=== PATIENT | female | born 1950 | race Caucasian/White ===

== ENCOUNTER 2018-05-07 18:57 | Outpatient (REF) | payer MEDICARE, SELFPAY ==
--- NOTE | 2018-05-07 15:30 | PAPFT_PTH ---
PATIENT: Linh rCystal LOC: [facility] U#:[id number] AGE/SX: 67/F ROOM: RE05/07/[address]: Gay Graham : 1950 BED: DIS: 05/07/2018 SPEC #: [id number] RECD: 05/10/18 12:54 STATUS: CHRIS REBeni #: [id number] ADRIAN: 05/07/18 15:[address]: Gay Graham DEPT: [facility] Cytology RECD BY: Ngoc Bee Tissues: 1 - CX/ENDOCX FOR PAP SMEARS Procedures: PAP THIN PREP/UVM Screening HPV DNA PROBE Comments: [id number]
[2018-05-07 20:25] LABS: TSH 0.96 uIU/mL (0.358-3.74)
== END 2018-05-07 19:17 ==
LOC: NCHCN 18:57
PROVIDERS: PCP Family Medicine; Visit Provider Family Medicine
DX: E03.9 Hypothyroidism, unspecified (principal); Z12.4 Encounter for screening for malignant neoplasm of cervix; Z11.51 Encounter for screening for human papillomavirus (HPV)
CPT/HCPCS: 88142; 84443; 87624

== ENCOUNTER 2019-03-31 10:27 | Emergency (ER) | payer MEDICARE, SELFPAY ==
[2019-03-31 10:41] VITALS: BP 136/65; PULSE 110; RESP 20; TEMP 36.8; O2SAT 92
--- NOTE | 2019-03-31 10:59 | ED.GENADUL_ITS ---
Discharge Plan Disposition Patient Disposition: HOME Discharge Details Chief Complaint: RespSymp Clinical Impression: Sinusitis, Acute otitis media, left Primary Care Provider: Gay Graham ED Provider: Severiano Perez Home Meds and New Rx's Prescriptions: New amoxicillin-pot clavulanate [Augmentin] 875-125 mg tablet 1 tab PO BID 10 Days Qty: 20 RF: 0 No Action atorvastatin [Lipitor] 40 MG tablet 40 mg PO DAILY RF: 0 aspirin 325 MG tablet 325 mg PO DAILY RF: 0 omeprazole 40 MG capsule,delayed release(DR/EC) 40 mg PO DAILY RF: 0 levothyroxine [Synthroid] 100 MCG tablet 100 mcg PO DAILY RF: 0 hydroxychloroquine [Plaquenil] 200 MG tablet 200 mg PO DAILY RF: 0 nicotine 7 MG/24 HR patch 24 hour 1 ea Transdermal DAILY RF: 0 Discharge Instructions Instructions: Sinusitis (ED), Otitis Media (ED) Additional Instructions: Your chest x-ray was negative for pneumonia and your flu was also negative. Most likely acute sinusitis for which we have prescribed antibiotics. It is very important that you take your antibiotics to completion. Take the antibiotic with a probiotic for which you can ask the pharmacist about. Follow- up with your primary care provider should your symptoms persist. Referrals: Mariposa Copeland [Emergency Nurse] - 1 week (Inaccurate entry) Severiano Perez PA [Emergency Provider] - Gay Graham MD [Primary Care Provider] - 1 week Discharge Data Discharge Date/Time-TO BE ENTERED AT DEPARTURE: 03/31/19 11:40 Medical Decision Making 11:36 This is a nontoxic-appearing 68-year-old female who presents to the emergency department with URI symptoms. Physical exam significant for left otitis media and maxillary/frontal sinus. Chest x-ray negative for pneumonia and flu is negative. Vital signs otherwise stable here in the emergency department. Symptoms of present for over 1 week therefore will initiate antibiotic treatment with Augmentin. Discussed the utilization of a probiotic. Return precautions provided. She does have an inhaler at home for which she should take for cough/wheezing symptoms. She will follow-up with her primary care provider should her symptoms persist. HPI General Date/Time Provider Initiated Documentation: 03/31/19 10:48 . HPI Narrative: Patient is a 68-year-old female significant history for pack-a-day smoking history who presents to the emergency department with roughly 1 week of URI symptoms. She admits to severe sinus tenderness, cough with yellow-green sputum production, left ear pain and sore throat. She denies any objective fevers but has had chills and sweats. No joint pain or muscle aches. No chest pain. No neck pain or stiffness. Related Data Home Medications Medication Instructions Recorded Confirmed aspirin 325 mg PO DAILY 05/16/15 03/31/19 atorvastatin [Lipitor] 40 mg PO DAILY 05/16/15 03/31/19 hydroxychloroquine [Plaquenil] 200 mg PO DAILY 05/16/15 03/31/19 levothyroxine [Synthroid] 100 mcg PO DAILY 05/16/15 03/31/19 nicotine 1 ea TRANSDERMAL DAILY 05/16/15 03/31/19 omeprazole 40 mg PO DAILY 05/16/15 03/31/19 amoxicillin-pot clavulanate 1 tab PO BID 10 Days #20 tab 03/31/19 [Augmentin] Previous Rx's Medication Instructions Recorded amoxicillin-pot clavulanate 1 tab PO BID 10 Days #20 tab 03/31/19 [Augmentin] Allergies Allergy/AdvReac Type Severity Reaction Status Date / Time codeine Allergy Mild Unverified 03/31/19 10:46 General Stated Complaint: RespSymp GLORIA: 3 Review of Systems Constitutional Constitutional: Denies body ache(s), Reports chills, Reports fatigue, Reports fever(s), Denies malaise, Denies night sweats and Reports weakness Eyes Eyes: Denies eye discharge ENT Ears, Nose, Mouth, and Throat: Reports otalgia, Reports nasal discharge, Denies neck mass, Denies neck pain, Denies nose pain, Reports sinus pain, Reports sinus pressure, Reports sore throat and Denies throat swelling Cardiovascular Cardiovascular: Denies chest pain, Denies dyspnea and Denies orthopnea Respiratory Respiratory: Reports cough, Reports excessive phlegm production, Denies dyspnea and Denies wheezing Gastrointestinal Gastrointestinal: Denies nausea and Denies vomiting Musculoskeletal Musculoskeletal: Denies joint swelling and Denies neck pain Neurologic Neurologic: Reports weakness Endocrine Endocrine: Reports fatigue Allergic/Immunologic Allergic/Immunologic: Denies throat swelling and Denies wheezing [facility] Social History Smoking/Tobacco Use Status: Current every day Tobacco Type: cigarettes Alcohol Intake: never Drug use: Never Substance use type: does not use Do you feel safe in your relationship?: Yes Exam Const General: cooperative, healthy appearing, comfortable and no acute distress Orientation: alert, awake and oriented x3 HENMT Head: normal to inspection, no palpable skull fracture and normocephalic Ears: hearing grossly normal bilaterally, external ears normal, TM normal on the right and TM abnormal bulging on the left, erythematous on the left and with loss of landmarks General nose exam: external nose normal Face and sinus: face symmetric and sinus tenderness frontal and maxillary Mouth: oral mucosae normal Teeth and gingiva: dentition normal Throat: posterior oropharynx normal Eyes General: appearance normal, both eyes and all related structures Conjunctivae: conjunctivae normal Cornea: corneas normal Pupils: PERRL Neck Neck: normal visual inspection, full ROM and lymphadenopathy Chest Chest: normal inspection of the chest Resp Effort & Inspection: normal respiratory effort Auscultation: bronchial breath sounds Cardio Rate: regular rate Rhythm: regular rhythm Pulses: normal peripheral pulses Skin General skin exam: no rashes or lesions noted Course Vital Signs Vital signs: Vital Signs Temperature 36.8 C 03/31/19 10:41 Pulse 110 H 03/31/19 10:41 Respiratory Rate 20 03/31/19 10:41 Blood Pressure 136/65 03/31/19 10:41 Pulse Oximetry 92 L 03/31/19 10:41 Temperature 36.8 C 03/31/19 10:41 Temperature Source Skin 03/31/19 10:41 Pulse 110 H 03/31/19 10:41 Respiratory Rate 20 03/31/19 10:41 Respiratory Effort 03/31/19 10:52 Respiratory Depth Normal 03/31/19 10:52 Blood Pressure 136/65 03/31/19 10:41 Blood Pressure Position Sitting 03/31/19 10:41 Pulse Oximetry 92 L 03/31/19 10:41 Oxygen Delivery Method Room Air 03/31/19 10:41 Oxygen Flow Rate 0 03/31/19 10:41 Pain Level 5 03/31/19 10:41 Lab/Test Results Lab/Test Results: 03/31/19 10:57 Nasopharynx Influenza Types A,B Antigen - Pending
--- NOTE | 2019-03-31 11:14 | DI.RAD_ITS ---
EXAM: XR CHEST 2V PA LATERAL CLINICAL HISTORY: Cough, wheezing, sputum production history of COPD TECHNIQUE: COMPARISON: CHEST 2 VIEWS PA,LAT from 01/19/2012 CHEST WITH CONTRAST from 02/27/2014 FINDINGS: The heart is not enlarged. Slight prominence of pulmonary interstitial markings noted. Prior chest CT showed severe emphysematous changes. No focal consolidation. No pleural effusion. IMPRESSION: No evidence of acute process.
[2019-03-31 11:36] VITALS: BP 112/60; PULSE 91; RESP 18; TEMP 37.3; O2SAT 89
== END 2019-03-31 11:40 | disposition home or self-care (01) ==
PROVIDERS: Emergency Provider Physician Assistant; PCP Family Medicine
DX: J01.80 Other acute sinusitis (principal); H66.92 Otitis media, unspecified, left ear; F17.210 Nicotine dependence, cigarettes, uncomplicated
CPT/HCPCS: 87449; 99283; 71046

== ENCOUNTER 2019-05-13 11:15 | Outpatient (REF) | payer MEDICARE, SELFPAY ==
[2019-05-13 18:41] LABS: HCT 45.2 % (36.0-46.0); HGB 14.5 g/dL (12.0-15.5); Mean Corp. HGB Concentration 32.1 g/dL (32.0-36.0); Mean Corpuscular Hemoglobin 26.9 pg (27.0-33.0); Mean Corpuscular Volume 83.7 fL (80-95); Mean Platelet Volume 12.2 fL (8.0-11.0); Platelet Count 196 x1000/uL (130-400); White Blood Cell Count 4.88 k/cumm (4.4-10.8)
[2019-05-13 19:11] LABS: ALT 24 U/L (14-59); AST 23 U/L (15-37); Albumin 3.6 g/dL (3.4-5.0); Alkaline Phosphatase 135 U/L (46-116); Anion Gap 5.6 mmol/L (3-11); BUN 12 mg/dL (7-18); Bilirubin, Total 0.4 mg/dL (0.2-1.0); CO2 30.4 mmol/L (21.0-32.0); CREATININE 0.56 mg/dL (0.55-1.02); Calcium 9.6 mg/dL (8.5-10.1); Chloride 105 mmol/L (98-107); Glucose 83 mg/dL (74-106); Potassium 4.6 mmol/L (3.5-5.1); Sodium 141 mmol/L (136-145); TSH (W/Ref FT4) 0.01 uIU/mL (0.36-3.74); Total Protein 7.2 g/dL (6.4-8.2); Vitamin B12 437 pg/mL (193-986)
== END 2019-05-13 11:35 ==
LOC: NCHCN 11:15
PROVIDERS: PCP Family Medicine; Visit Provider Family Medicine
DX: R27.0 Ataxia, unspecified (principal)
CPT/HCPCS: 80053; 85027; 82607; 84439; 84443

== ENCOUNTER 2019-05-17 02:00 | Outpatient (CLI) | payer MEDICARE, SELFPAY ==
--- NOTE | 2019-05-17 15:21 | DI.MAMMO_ITS ---
EXAM: MG MAMMO SCREENING CLINICAL HISTORY: SCREENING, Z12.39. TECHNIQUE: Bilateral full field digital CC and MLO mammographic images were obtained with 3D tomosyn thesis and utilizing computer aided detection (CAD). COMPARISON: Available for comparison. FINDINGS: Masses/Architectural Distortion: None seen. Microcalcifications: No suspicious pleomorphic-type are seen. Skin Thickening/Nipple Retraction: None. IMPRESSION: 1. No significant interval change with no specific features of malignancy noted. 2. Unless there is more urgent need, screening mammography is recommended, as per [employer] guidelines. ACR BI-RAD Category- 1 Negative Breast Density - Category B - Scattered areas of fibroglandular density A negative radiographic report should not delay biopsy if a dominant or clinically suspicious mass is present. Up to ten percent of cancers are not identified on mammography. A negative report may reinforce clinical impression. Adenosis and dense breasts may obscure an underlying neoplasm. False positive reports average 6 to 10%. Patient will receive a letter notifying them of these results.
== END 2019-05-17 02:20 ==
PROVIDERS: PCP Family Medicine; Visit Provider Family Medicine
DX: Z12.31 Encounter for screening mammogram for malignant neoplasm of breast (principal)
CPT/HCPCS: 77063; 77067

== ENCOUNTER 2019-06-08 08:12 | Inpatient (IN) | payer MEDICARE, SELFPAY ==
[2019-06-08] VITALS (103 sets, daily range): BP systolic 87–114; BP diastolic 44–73; PULSE 51–100; RESP 2–37; TEMP 30–37.5; O2SAT 84–100
--- NOTE | 2019-06-08 08:30 | DI.RAD_ITS ---
EXAM: XR CHEST 2V PA LATERAL INDICATION: cough w/ SOB 1 month, chest pressure, hypoxic. COMPARISON: XR CHEST 2V PA LATERAL from 03/31/2019 TECHNIQUE: 2D digital imaging was performed. FINDINGS: Heart size is normal. Aorta is tortuous. There is no infiltrate seen posteriorly on the lateral vi ew above the diaphragm. No effusions are or pulmonary edema is seen is seen. There are underlying f ibrotic changes. IMPRESSION: Posterior basilar infiltrate. DATA REPOSITORY: RADIATION DOSE DELIVERED:
--- NOTE | 2019-06-08 08:42 | ED.GENADUL_ITS ---
Discharge Plan Disposition Patient Disposition: [facility] INPATIENT Condition: Serious Discharge Details Chief Complaint: SOB Clinical Impression: Influenza, Pneumonia, Hypoxemia Primary Care Provider: Gay Graham ED Provider: Danny Barksdale Home Meds and New Rx's Prescriptions: No Action levothyroxine [Synthroid] 100 MCG tablet 100 mcg PO DAILY RF: 0 ibuprofen [IBU-200] 200 mg Tablet 400 mg PO QAM RF: 0 cholecalciferol (vitamin D3) [Vitamin D3] 25 mcg (1,000 unit) Tablet 1,000 unit PO DAILY RF: 0 Medical Decision Making 68-year-old female presents today for evaluation of cough and shortness of breath. 1 month ago she had negative chest x-ray and influenza testing, but was treated with Augmentin for suspected underlying bacterial illness. She had mild improvement of her symptoms with this, however symptoms returned shortly after antibiotic completion. She denies hemoptysis but has had regular continued worsening cough, sputum is white, she has remained short of breath with mild chest pressure for the last few days. She denies any chest pain, or history of cardiac disease. Physical exam demonstrates soft blood pressure in the high 90s systolic, oxygenation is in the low 90s, minimal tachypnea. Differential is highest for COPD versus unresolved pneumonia. But does include atypical ACS versus PE. Patient is PERC positive and we will get a d-dimer for further assessment. EKG shows no evidence of STEMI at this time. 12:26 PM Patient's laboratory work-up is returned, no elevation in the white count, no left shift. No bandemia. D-dimer was positive, CT JAEGER was ordered which shows no evidence of PE. There is notable pneumonia present though on CT. Venous pH is stable, electrolytes are unremarkable, troponin EKG stable. Influenza testing did just come back positive. With the notable pneumonia, in conjunction with a failed outpatient therapy I do feel she would benefit from admission. Initially is Levaquin was ordered, however with the addition of the worsening oxygenation status and her influenza we will add vancomycin and Zosyn. Patient 's oxygen is hovering in the high 80s low 90s still. Will trial BiPAP to help. I did discuss the case with the hospitalist , he agrees with assessment and plan. We will also add Tamiflu. I have extensively reviewed the treatment plan with the patient. I have addressed all patient concerns at this time. I have also discussed the plan with the admitting physician and they agree with the current assessment and plan and have agreed to assume responsibility for the patient. All parties demonstrate verbal understanding and agreement with our assessment and plan at this time. EKG 8: 23 Rate 89, intervals normal, sinus rhythm, no significant ST elevation or depression. No significant T wave inversions except for in V1, minimal less than 1 mm elevation in V1, no reciprocal depressions. No evidence of STEMI. FINDINGS: Pulmonary arteries and aorta are well opacified with IV contrast. There is some respiratory motion at the lung bases. No pulmonary emboli or aortic dissection is seen. There is mild to moderate aortic calcification. Some mural thrombus is seen at the distal thoracic aorta. Coronary artery calcifications and aortic valvular calcifications are seen. The heart size is normal. There is a dense area of consolidation at the left lung base. There minimally increased densities posteriorly at the right lung base. There is underlying centrilobular emphysema greatest in the upper lobes. Scoliosis and degenerative changes are noted in the thoracic spine. IMPRESSION: Left lower lobe pneumonia. No evidence of pulmonary emboli. [id number]: Total DLP = 0.00 mGy-cm FINDINGS: Heart size is normal. Aorta is tortuous. There is no infiltrate seen posteriorly on the lateral view above the diaphragm. No effusions are or pulmonary edema is seen is seen. There are underlying fibrotic changes. IMPRESSION: Posterior basilar infiltrate. DATA REPOSITORY: RADIATION DOSE DELIVERED: [facility] General Date/Time Provider Initiated Documentation: 06/08/19 08:20 . HPI Narrative: 68-year-old female with a past medical history of chronic tobacco use, GERD, high cholesterol, hypothyroidism, lupus, not currently on medications for lupus, cholesterol, GERD, or COPD, who presents today for evaluation of cough and shortness of breath. 1 month ago the patient developed symptoms of cough with productive sputum, mild shortness of breath. X-ray and influenza were negative at that time, she was started on Augmentin I have concern for underlying infection. Patient states that she had mild improvement with her course of antibiotics, however her symptoms shortly returned once antibiotics were finished. In addition to this over the last week her symptoms have notably worsened in general, she has become more short of breath with a generalized chest pressure, she continues to have cough with productive white sputum. She admits to occasional fever and chills. She does continue to smoke. She did take a few puffs of her significant other's inhaler, and this did slightly improve her symptoms yesterday. She denies any headache, neck pain, abdominal pain, tearing or ripping sensation in the chest, numbness tingling or focal weakness. She denies any history of cardiac disease. She has no other complaints at this time. No other modifying factors. She denies hemoptysis. Denies PE risk factors such as recent long car rides, immobilization, recent surgery, prior history of DVT or PE, family history of PE or DVT, morbid obesity, exogenous estrogen and smoking, hemoptysis, history of cancer. Related Data Home Medications Medication Instructions Recorded Confirmed levothyroxine [Synthroid] 100 mcg PO DAILY 05/16/15 06/08/19 cholecalciferol (vitamin D3) 1,000 unit PO DAILY 06/08/19 06/08/19 [Vitamin D3] ibuprofen [IBU-200] 400 mg PO QAM 06/08/19 06/08/19 Allergies Allergy/AdvReac Type Severity Reaction Status Date / Time codeine Allergy Mild Unverified 03/31/19 10:46 General Stated Complaint: SOB GOLRIA: 2 Review of Systems All systems reviewed & are unremarkable except as noted in HPI and below PFSH Social History Smoking/Tobacco Use Status: Current every day Tobacco Type: cigarettes Alcohol Intake: never Drug use: Never Substance use type: does not use Do you feel safe at home: Yes Do you feel safe in your relationship?: Yes Exam Narrative Exam Narrative: 1.Const: Well-nourished, Well-developed, appearing stated age 2.Eyes: PERRL, no conjunctival injection, and symmetrical lids. 3.ENT: Atraumatic external nose and ears. Moist MM. Neck: Symmetric, trachea midline, No thyromegaly. 4.CVS: +S1/S2, No murmurs or gallops. Peripheral pulses 2+ and equal in all extremities. Brisk capillary refill in all extremities. 5.RESP: Unlabored respiratory effort. Coarse breath sounds throughout, no focal wheezes though. Diminished breath sounds throughout. 6.GI: Soft, Nontender/Nondistended, No hepatosplenomegaly. No guarding or rebound. 7.MSK: Normocephalic/Atraumatic, Extremities w/o deformity or ttp No cyanosis or clubbing, Normal movement of all extremities. No pitting edema. 8.Skin: Warm, Dry. No rashes or lesions. 9.Neuro: [employer] employee II-XII grossly intact. Sensation grossly intact, no focal neurologic deficits. 10.Psych: (AAO) x3. Appropriate mood and affect Course Vital Signs Vital signs: Vital Signs Temperature 37.5 C 06/08/19 08:19 Pulse 89 06/08/19 08:19 Respiratory Rate 26 H 06/08/19 08:19 Blood Pressure 99/57 L 06/08/19 08:19 Pulse Oximetry 91 L 06/08/19 08:19 Temperature 37.5 C 06/08/19 08:19 Temperature Source Oral 06/08/19 08:19 Pulse 89 06/08/19 08:19 Respiratory Rate 26 H 06/08/19 08:19 Respiratory Effort 06/08/19 08:26 Blood Pressure 99/57 L 06/08/19 08:19 Blood Pressure Position Supine 06/08/19 08:19 Pulse Oximetry 91 L 06/08/19 08:19 Oxygen Delivery Method Room Air 06/08/19 08:19 Oxygen Flow Rate 0 06/08/19 08:19 Pain Level 7 06/08/19 08:19
[2019-06-08 08:48] LABS: BE (Venous) -0.8 mmol/L (-3-3); HCO3 (Venous) 24 mmol/L (22-28); O2 Sat (Venous) 91 % (70-80); TCO2 (Venous) 21 mmol/L (22-29); pCO2 (Venous) 37 mm/Hg (34-47); pH (Venous) 7.42 (7.35-7.45); pO2 (Venous) 56 mm/Hg (28-44)
[2019-06-08 08:51] LABS: HCT 38.3 % (36.0-46.0); HGB 12.9 g/dL (12.0-15.5); Mean Corp. HGB Concentration 33.7 g/dL (32.0-36.0); Mean Corpuscular Hemoglobin 26.9 pg (27.0-33.0); Mean Corpuscular Volume 79.8 fL (80-95); Mean Platelet Volume 10.5 fL (8.0-11.0); Platelet Count 155 x1000/uL (130-400); RBC Distribution Width 15.3 % (11.7-14.6); White Blood Cell Count 8.34 k/cumm (4.4-10.8)
[2019-06-08] MEDS: methylPREDNISolone SUCC 125 MG VIAL IVP (08:54)
[2019-06-08] MEDS: Albuterol/Ipratropium 3 ML UPD VIAL 9 ML UPD (08:54)
[2019-06-08] MEDS: Normal Saline 500 ML IV (08:54)
[2019-06-08 09:04] LABS: Absolute Lymphocyte Count 1.33 k/cumm (1.2-3.4); Absolute Monocyte Count 0.67 k/cumm (0.11-0.7); Absolute Neutrophil Count 6.26 k/cumm (1.2-6.7); Atypical Lymphocytes % 3; INR 1.1 (0.9-1.1); PTT Activated 34.4 sec (21.0-31.4); Prothrombin Time 10.6 sec (9.3-11.0)
[2019-06-08 09:05] LABS: Diff Comment Manual Differential; RBC Morphology Normal
[2019-06-08 09:17] LABS: NT-proBNP 5 pg/mL (<300)
[2019-06-08 09:21] LABS: D-Dimer 2081 ng/mlFEU (<500)
--- NOTE | 2019-06-08 10:00 | DI.CT_ITS ---
EXAM: CT CHEST PE CTA CLINICAL HISTORY: SOB, cough, CP, elevated dimer TECHNIQUE: Post IV contrast according to the pulmonary embolism protocol. COMPARISON: XR CHEST 2V PA LATERAL from 06/08/2019 FINDINGS: Pulmonary arteries and aorta are well opacified with IV contrast. There is some respiratory motion a t the lung bases. No pulmonary emboli or aortic dissection is seen. There is mild to moderate aortic calcification. Some mural thrombus is seen at the distal thoracic aorta. Coronary artery calcificatio ns and aortic valvular calcifications are seen. The heart size is normal. There is a dense area of co nsolidation at the left lung base. There minimally increased densities posteriorly at the right lung base. There is underlying centrilobular emphysema greatest in the upper lobes. Scoliosis and degenera tive changes are noted in the thoracic spine. IMPRESSION: Left lower lobe pneumonia. No evidence of pulmonary emboli.
[2019-06-08 10:03] LABS: ALT 32 U/L (14-59); AST 54 U/L (15-37); Alkaline Phosphatase 129 U/L (46-116); Anion Gap 13.3 mmol/L (3-11); BUN 17 mg/dL (7-18); Bilirubin, Total 0.4 mg/dL (0.2-1.0); CO2 22.7 mmol/L (21.0-32.0); CREATININE 0.69 mg/dL (0.55-1.02); Calcium 9.2 mg/dL (8.5-10.1); Chloride 97 mmol/L (98-107); Glucose 127 mg/dL (74-106); Potassium 3.5 mmol/L (3.5-5.1); Sodium 133 mmol/L (136-145); Total Protein 7.3 g/dL (6.4-8.2)
[2019-06-08 10:09] LABS: Troponin I < 0.05 ng/Ml (<0.06)
[2019-06-08] MEDS: Omnipaque 350 MG/ML 100 ML BTL IJ (10:35)
[2019-06-08] MEDS: Normal Saline - Diluent 50 ML VIAL IV (10:37)
[2019-06-08] MEDS: levoFLOXacin 750 MG/150 ML BAG 100 MG IVPB ×2 (11:30→18:07)
[2019-06-08 12:29] LABS: Troponin I < 0.05 ng/Ml (<0.06)
[2019-06-08] MEDS: Oseltamivir 75 MG CAP PO ×2 (12:45→20:17)
[2019-06-08] MEDS: PIPERACILLIN/TAZO 4.5 GM in Normal Saline 100 ML IVPB ×2 (13:09→21:11)
--- NOTE | 2019-06-08 14:00 | W.PM.HP.N ---
Date of service: 06/08/19 Time of Service: 14:00 Assessment and Plan Assessment and plan (1) Pneumonia: Status: Acute Assessment and plan: Continue with broad-spectrum antibiotics including Zosyn and Levaquin with the addition of vancomycin for good staphylococcal coverage in the setting of a post influenza pneumonia. Continue aerosolized bronchodilators and mucolytic's. Avoid corticosteroids in the setting of acute influenza infection. Continue supportive care with noninvasive positive pressure ventilation wean to nasal cannula when hypoxemia resolves. (2) Influenza: Status: Acute Assessment and plan: Continue Tamiflu History of Present Illness History of Present Illness Chief Complaint: dyspnea, fever, chills Narrative: 68 yr old female w/ PMH of COPD (not on oxygen nor chronic corticosteroids), continues to smoke 1 ppd who has been short of breath for past month. She was treated as outpatient for pneumonia about a month ago and felt better until the antibiotics were finished. She now presents to the ER w/ several days of worsening dyspnea, non-productive cough and chills (rigors), +/- fever (did not check her temperature). In the ER she was found to be tachypneic RR in the 30's and hypoxemia SpO2 in the 80's. CXR demonstrated posterior infiltrate. CTA of chest was performed d/t elevated d-dimer but no PE was seen but her pnumonia was confirmed. Labs included CBC, CBC, procalcitonin, d-dimer, PT, aPtt. Labs were remarkable for high d-dimer of 2081, CBC did not show leukocytosis, and no anemia. CMP was unremarkable. Initially her hypoxemia stabilized on oxygen per nasal cannula but when she had recurrent hypoxemia she required NIPPV w/ BIPAP. Her nasal swab is positive for influenza A. Treatment in the ER included iv Levaquin. Vancomycin and Zosyn has been ordered and patient was started on Tamiflu. Review of Systems Narrative: As per HPI Constitutional Constitutional: Reports chills, Reports excessive sweating, Reports fatigue and Reports fever(s) Cardiovascular Cardiovascular: Reports system reviewed and no additional complaints, except as docu, Reports dyspnea and Reports dyspnea on exertion Respiratory Respiratory: Reports cough, Denies hemoptysis, Denies excessive phlegm production, Denies pain on inspiration, Reports dyspnea, Reports dyspnea on exertion and Reports wheezing Gastrointestinal Gastrointestinal: Reports diarrhea, Reports nausea and Denies vomiting Genitourinary Genitourinary: Reports system reviewed and no additional complaints, except as docu Musculoskeletal Musculoskeletal: Reports myalgias Integumentary/Breasts Skin/Breast: Reports system reviewed and no additional complaints, except as docu Neurologic Neurologic: Reports system reviewed and no additional complaints, except as docu Endocrine Endocrine: Reports excessive sweating and Reports fatigue Hematologic/Lymphatic Hematologic/Lymphatic: Reports system reviewed and no additional complaints, except as docu Allergic/Immunologic Allergic/Immunologic: Reports wheezing PFSH Medical History (Updated 06/08/19 @ 14:26 by Demetrio Maya) COPD (chronic obstructive pulmonary disease) (Chronic) Hypothyroidism (acquired) (Acute) Surgical History (Updated 06/08/19 @ 14:25 by Demetrio Maya) H/O section (Chronic) 3 pregnancies and 3 deliveries by Social History (Updated 06/08/19 @ 14:24 by Demetrio Maya) Smoking/Tobacco Use Status: Current every day Tobacco Type: cigarettes Tobacco: How many years used: 40 Alcohol Intake: never Drug use: Never Substance use type: does not use Do you feel safe at home: Yes Do you feel safe in your relationship?: Yes History History 3 Para 3 Hx # Term Pregnancies 3 Multiple births Hx # Pregnancies Ectopic pregnancies AB induced Hx Number of Living Children 3 AB spontaneous Meds Home Medications and Allergies Home Medications Medication Instructions Recorded Confirmed Type levothyroxine [Synthroid] 100 mcg PO DAILY 05/16/15 06/08/19 History cholecalciferol (vitamin D3) 1,000 unit PO DAILY 06/08/19 06/08/19 History [Vitamin D3] ibuprofen [IBU-200] 400 mg PO QAM 06/08/19 06/08/19 History Allergies Allergy/AdvReac Type Severity Reaction Status Date / Time codeine Allergy Mild Unverified 03/31/19 10:46 Exam Narrative Exam Narrative: Late middle-aged female of slender build lying in bed wearing a BiPAP mask. She is alert and oriented person place time circumstance. HEENT is unremarkable. Neck supple without JVD normal carotid pulses no bruits no thyromegaly no lymphadenopathy. Lungs are diffusely diminished with bibasilar rales no rhonchi Heart is regular without murmur rub or gallop. Abdomen is scaphoid soft and nontender without palpable masses no bruits no organomegaly. Lower extremities without peripheral cyanosis or edema. Neurologic exam is nonfocal grossly intact. Genitalia rectal exam deferred. Not clinically indicated. Results Labs Result diagrams: 06/08/19 08:40 06/08/19 08:40 Labs: Laboratory Results - last 24 hr 06/08/19 06/08/19 06/08/19 08:40 08:40 08:40 WBC RBC Hgb Hct MCV MCH MCHC RDW Plt Count MPV Immature Gran % Neutrophils % Lymphocytes % Atypical Lymphs % Monocytes % Eosinophils % Basophils % Absolute Neutrophils Absolute Lymphocytes Absolute Monocytes Absolute Eosinophils Absolute Basophils Differential Comment RBC Morphology PT INR APTT D-Dimer VBG pH 7.42 VBG pCO2 37 VBG pO2 56 H VBG HCO3 24 VBG Total CO2 21 L VBG O2 Saturation 91 H VBG Base Excess -0.8 Sodium 133 L Potassium 3.5 Chloride 97 L Carbon Dioxide 22.7 Anion Gap 13.3 H BUN 17 Creatinine 0.69 Estimated GFR/1.73 m2 >= 60.00 Glucose 127 H Calcium 9.2 Total Bilirubin 0.4 AST 54 H ALT 32 Alkaline Phosphatase 129 H Troponin I < 0.05 NT-Pro-B Natriuret Pep 5 Total Protein 7.3 Albumin 3.0 L 06/08/19 06/08/19 06/08/19 08:40 08:40 08:40 WBC 8.34 RBC 4.80 Hgb 12.9 Hct 38.3 MCV 79.8 L MCH 26.9 L MCHC 33.7 RDW 15.3 H Plt Count 155 MPV 10.5 Immature Gran % 0.0 Neutrophils % 75.0 Lymphocytes % 13.0 Atypical Lymphs % 3 Monocytes % 8.0 Eosinophils % 0.0 Basophils % 0.0 Absolute Neutrophils 6.26 Absolute Lymphocytes 1.33 Absolute Monocytes 0.67 Absolute Eosinophils 0.00 Absolute Basophils 0.00 Differential Comment Manual differential RBC Morphology Normal PT 10.6 INR 1.1 APTT 34.4 H D-Dimer 2081 H VBG pH VBG pCO2 VBG pO2 VBG HCO3 VBG Total CO2 VBG O2 Saturation VBG Base Excess Sodium Potassium Chloride Carbon Dioxide Anion Gap BUN Creatinine Estimated GFR/1.73 m2 Glucose Calcium Total Bilirubin AST ALT Alkaline Phosphatase Troponin I NT-Pro-B Natriuret Pep Total Protein Albumin 06/08/19 11:33 WBC RBC Hgb Hct MCV MCH MCHC RDW Plt Count MPV Immature Gran % Neutrophils % Lymphocytes % Atypical Lymphs % Monocytes % Eosinophils % Basophils % Absolute Neutrophils Absolute Lymphocytes Absolute Monocytes Absolute Eosinophils Absolute Basophils Differential Comment RBC Morphology PT INR APTT D-Dimer VBG pH VBG pCO2 VBG pO2 VBG HCO3 VBG Total CO2 VBG O2 Saturation VBG Base Excess Sodium Potassium Chloride Carbon Dioxide Anion Gap BUN Creatinine Estimated GFR/1.73 m2 Glucose Calcium Total Bilirubin AST ALT Alkaline Phosphatase Troponin I < 0.05 NT-Pro-B Natriuret Pep Total Protein Albumin Last Vital Signs Temp 37.3 C 06/08/19 11:30 Pulse 85 06/08/19 12:38 Resp 21 06/08/19 12:38 BP 101/65 06/08/19 12:15 Pulse Ox 98 06/08/19 12:38
[2019-06-08 15:18] LABS: Procalcitonin 0.2 ng/mL
[2019-06-08] MEDS: POTASSIUM CHLORIDE/0.9% NACL 1,000 ML 100 MEQ IV (16:17)
[2019-06-08] MEDS: Normal Saline Flush 10 ML SYR IVP ×2 (16:20→23:18)
[2019-06-08] MEDS: Enoxaparin 40 MG/0.4 ML SYR SC (17:05)
[2019-06-08] MEDS: Albuterol/Ipratropium 3 ML UPD VIAL UPD ×2 (18:05→23:19)
[2019-06-08] MEDS: guaiFENesin 600 MG TABCR PO (20:17)
[2019-06-08] MEDS: VANCOMYCIN 750 MG in Normal Saline 250 ML 166.667 MG IV (23:18)
[2019-06-09] VITALS (30 sets, daily range): BP systolic 92–108; BP diastolic 47–79; PULSE 49–78; RESP 7–27; TEMP 31–38.7; O2SAT 83–100
[2019-06-09] MEDS: POTASSIUM CHLORIDE/0.9% NACL 1,000 ML 100 MEQ IV (03:08)
[2019-06-09] MEDS: Promethazine 25 MG TAB PO (03:37)
[2019-06-09] MEDS: PIPERACILLIN/TAZO 4.5 GM in Normal Saline 100 ML IVPB ×3 (05:51→22:45)
[2019-06-09] MEDS: Albuterol/Ipratropium 3 ML UPD VIAL UPD ×3 (05:52→17:49)
[2019-06-09] MEDS: Levothyroxine 100 MCG TAB PO (05:52)
[2019-06-09 07:10] LABS: Abs Immature Grans 0.02 k/cumm (0.0-0.09); Absolute Basophil Count 0.01 k/cumm (0.0-0.2); Absolute Lymphocyte Count 0.74 k/cumm (1.2-3.4); Absolute Neutrophil Count 4.18 k/cumm (1.2-6.7); Basophils % 0.2; HGB 11.8 g/dL (12.0-15.5); Immature Grans % 0.4 %; Lymphocytes % 14.1; Mean Corp. HGB Concentration 32.8 g/dL (32.0-36.0); Mean Corpuscular Hemoglobin 26.3 pg (27.0-33.0); Mean Corpuscular Volume 80.2 fL (80-95); Monocytes % 5.7; Neutrophils % 79.6; Platelet Count 145 x1000/uL (130-400); RBC 4.49 m/cumm (4.00-5.20); RBC Distribution Width 15.5 % (11.7-14.6); White Blood Cell Count 5.25 k/cumm (4.4-10.8)
[2019-06-09 07:21] LABS: ALT 35 U/L (14-59); AST 60 U/L (15-37); Albumin 2.4 g/dL (3.4-5.0); Alkaline Phosphatase 103 U/L (46-116); Anion Gap 9.7 mmol/L (3-11); BUN 10 mg/dL (7-18); Bilirubin, Total 0.3 mg/dL (0.2-1.0); CO2 22.3 mmol/L (21.0-32.0); CREATININE 0.59 mg/dL (0.55-1.02); Calcium 8.4 mg/dL (8.5-10.1); Chloride 107 mmol/L (98-107); Glucose 135 mg/dL (74-106); Potassium 4.3 mmol/L (3.5-5.1); Sodium 139 mmol/L (136-145); TSH (W/Ref FT4) 0.02 uIU/mL (0.36-3.74); Total Protein 6.2 g/dL (6.4-8.2)
[2019-06-09 07:51] LABS: FREE T4 1.51 ng/dL (0.76-1.46)
[2019-06-09] MEDS: Oseltamivir 75 MG CAP PO ×2 (08:11→19:40)
[2019-06-09] MEDS: guaiFENesin 600 MG TABCR PO ×2 (08:11→19:40)
[2019-06-09] MEDS: Cholecalciferol (Vitamin D3) 1,000 UNIT TAB 1000 UNITS PO (08:11)
--- NOTE | 2019-06-09 09:16 | PDOC.CMIN ---
- If Service Date Differs Date of service: 06/09/19 Time of Service: 09:16 Care Management Initial Assess REASON FOR HOSPITALIZATION:: Pneumonia PAST MEDICAL HISTORY/PAST SURGICAL HISTORY:: Medical History (Updated 06/08/19 @ 14:26 by Demetrio Maya). COPD (chronic obstructive pulmonary disease) (Chronic). Hypothyroidism (acquired) (Acute). Surgical History (Updated 06/08/19 @ 14:25 by Demetrio Maya). H/O section (Chronic). 3 pregnancies and 3 deliveries by PREVIOUS FUNCTIONAL STATUS/SOCIAL/FAMILY SUPPORTS:: Linh lives in a mobile home in [place], [place] with her and son. She currently works at [employer] in [place], as does her son. They commmute together and work from 4am until noon. Linh does not receive any community services. She continues to drive and remains independent. CURRENT FUNCTIONAL STATUS:: Linh was sitting up in bed when CM met with her. At first she was cautious in her responses, but engaged more fully after a few minutes and shared some of her interests and hobbies. She hopes to be able to return home soon. ADVANCE DIRECTIVES:: none on file Has patient been provided with information about the portal?: Yes Did the patient sign up for the portal?: No CODE STATUS:: Full Code INSURANCE COVERAGE / FINANCIAL ISSUES:: Medicare CURRENT HOME/COMMUNITY SERVICES/EQUIPMENT:: None PRIMARY CARE PHYSICIAN:: Gay Graham POTENTIAL DISCHARGE NEEDS:: Follow up with PCP and discharge plan of care PATIENT/FAMILY EDUCATION NEEDS:: Discharge plan, limitations, folow up plan, Ask Me three. TRANSPORTATION:: via private vehicle with family PLAN:: Linh will likely be discharged home with no new sewrvices. She will follow up with her PCP and discharge plan of care. CM will continue to provide support to patient, family and discharge planning needs.
--- NOTE | 2019-06-09 09:20 | W.PM.PROGNOT ---
Date of Service Date of service: 06/09/19 Time of Service: 09:20 Assessment and Plan Assessment and plan (1) Pneumonia: Status: Acute Assessment and plan: Continue with broad-spectrum antibiotics including Zosyn and Levaquin with the addition of vancomycin for good staphylococcal coverage in the setting of a post influenza pneumonia. Continue aerosolized bronchodilators and mucolytic's. Avoid corticosteroids in the setting of acute influenza infection. Continue supportive care with noninvasive positive pressure ventilation wean to nasal cannula when hypoxemia resolves. Qualifiers: Pneumonia type: due to unspecified organism Laterality: left Lung location: lower lobe of lung Qualified Code(s): J18.9 - Pneumonia, unspecified organism (2) Influenza: Status: Acute Assessment and plan: Continue Tamiflu (3) Discharge planning issues: Status: Acute Assessment and plan: Plan will be to transition her over to oral antibiotics and discharge home at the end of the week. She will be transferred to the medical/surgical floor today for continued IV Zosyn and vancomycin pending results for blood cultures. I have also ordered a urine for strep antigen and we will attempt to get a sputum culture if she is able to mobilize a sputum. Subjective Subjective Interval history since last seen: Patient feels that her breathing is improved. She is not dyspneic at rest. Cough remains nonproductive and she really has minimal cough today. Patient is afebrile this morning at 36 degrees but had a low-grade fever 38.7 last night. Rest of her vital signs are stable. Patient ate breakfast this morning without any nausea or vomiting. I am going to discontinue her IV fluids. Her CMP and CBC are unremarkable this morning. Exam Narrative Exam Narrative: Petite elderly female sitting up in the bed wearing a nasal high flow cannula however her FiO2 is currently on room air. She is not using her accessory respiratory muscles and appears to be in no acute distress. Lungs reveal bibasilar rales and end expiratory wheezes. Upper lung gómez are clear. Heart is regular rate and rhythm without murmur rub or gallop. Objective Objective Clinical Data: Abnormal lab results 06/08/19 06/08/19 06/09/19 Range/Units 08:40 08:40 06:15 Hgb (12.0-15.5) g/dL MCH (27.0-33.0) pg RDW (11.7-14.6) % Absolute Lymphocytes (1.2-3.4) k/cumm D-Dimer 2081 H (<500) ng/mlFEU Sodium 133 L (136-145) mmol/L Chloride 97 L (98-107) mmol/L Anion Gap 13.3 H (3-11) mmol/L Glucose 127 H 135 H (74-106) mg/dL Calcium 8.4 L (8.5-10.1) mg/dL AST 54 H 60 H (15-37) U/L Alkaline Phosphatase 129 H (46-116) U/L Total Protein 6.2 L (6.4-8.2) g/dL Albumin 3.0 L 2.4 L (3.4-5.0) g/dL TSH 0.02 L (0.36-3.74) uIU/mL Free T4 1.51 H (0.76-1.46) ng/dL 06/09/19 Range/Units 06:15 Hgb 11.8 L (12.0-15.5) g/dL MCH 26.3 L (27.0-33.0) pg RDW 15.5 H (11.7-14.6) % Absolute Lymphocytes 0.74 L (1.2-3.4) k/cumm D-Dimer (<500) ng/mlFEU Sodium (136-145) mmol/L Chloride (98-107) mmol/L Anion Gap (3-11) mmol/L Glucose (74-106) mg/dL Calcium (8.5-10.1) mg/dL AST (15-37) U/L Alkaline Phosphatase (46-116) U/L Total Protein (6.4-8.2) g/dL Albumin (3.4-5.0) g/dL TSH (0.36-3.74) uIU/mL Free T4 (0.76-1.46) ng/dL Vital Signs Temperature 38.7 C H 06/09/19 03:19 Temperature Source Temporal Artery Scan 06/08/19 16:15 Pulse 55 L 06/09/19 04:00 Pulse 58 L 06/09/19 04:00 Respiratory Rate 14 06/09/19 08:20 Respiratory Effort Splinting 06/09/19 08:20 Respiratory Depth Shallow 06/09/19 08:20 Respiratory Pattern Normal 06/09/19 08:20 Blood Pressure 98/54 L 06/09/19 04:00 Blood Pressure Mean 65 06/09/19 04:00 Blood Pressure Position Sitting 06/08/19 13:54 Pulse Oximetry 97 06/09/19 04:00 Oxygen Delivery Method Nasal Cannula 06/09/19 03:19 Oxygen Flow Rate 30 06/09/19 08:19 Fraction of Inspired Oxygen (FIO2) 21 06/09/19 08:19 Pain Level 0 06/09/19 03:19 Intake & Output 06/08/19 06/08/19 06/09/19 11:59 23:59 11:59 Intake Total 500 / 1243.333 743.333 / 7047.364 0665.667 / 1156.667 Output Total 1350 / 1350 500 / 500 Balance 500 / -106.667 -606.667 / -106.667 656.667 / 656.667 Weight 51.4 kg 51.4 kg 55.4 kg Intake: IV 500 / 1093.333 593.333 / 7694.751 9491.667 / 1096.667 Oral 150 / 150 60 / 60 Output: Urine 1350 / 1350 500 / 500 Other: Urine Color Yellow Yellow Urine Appearance Clear Clear Urine Odor None None Comment pt voids to commode pt voids to commode Stool Occult Blood Negative Stool Size Small Stool Characteristics Soft Formed Brown Voiding Methods Bedside Commode Bedside Commode Laboratory Results WBC 5.25 k/cumm (4.4-10.8) D 06/09/19 06:15 RBC 4.49 m/cumm (4.00-5.20) 06/09/19 06:15 Hgb 11.8 g/dL (12.0-15.5) L 06/09/19 06:15 Hct 36.0 % (36.0-46.0) 06/09/19 06:15 MCV 80.2 fL (80-95) 06/09/19 06:15 MCH 26.3 pg (27.0-33.0) L 06/09/19 06:15 MCHC 32.8 g/dL (32.0-36.0) 06/09/19 06:15 RDW 15.5 % (11.7-14.6) H 06/09/19 06:15 Plt Count 145 x1000/uL (130-400) 06/09/19 06:15 MPV 11.0 fL (8.0-11.0) 06/09/19 06:15 Immature Gran % 0.4 % 06/09/19 06:15 Neutrophils % 79.6 06/09/19 06:15 Lymphocytes % 14.1 06/09/19 06:15 Atypical Lymphs % 3 06/08/19 08:40 Monocytes % 5.7 06/09/19 06:15 Eosinophils % 0.0 06/09/19 06:15 Basophils % 0.2 06/09/19 06:15 Absolute Neutrophils 4.18 k/cumm (1.2-6.7) 06/09/19 06:15 Absolute Lymphocytes 0.74 k/cumm (1.2-3.4) L 06/09/19 06:15 Absolute Monocytes 0.30 k/cumm (0.11-0.7) 06/09/19 06:15 Absolute Eosinophils 0.00 k/cumm (0.0-0.7) 06/09/19 06:15 Absolute Basophils 0.01 k/cumm (0.0-0.2) 06/09/19 06:15 Differential Comment Manual differential 06/08/19 08:40 RBC Morphology Normal 06/08/19 08:40 PT 10.6 sec (9.3-11.0) 06/08/19 08:40 INR 1.1 (0.9-1.1) 06/08/19 08:40 APTT 34.4 sec (21.0-31.4) H 06/08/19 08:40 D-Dimer 2081 ng/mlFEU (<500) H 06/08/19 08:40 VBG pH 7.42 (7.35-7.45) 06/08/19 08:40 VBG pCO2 37 mm/Hg (34-47) 06/08/19 08:40 VBG pO2 56 mm/Hg (28-44) H 06/08/19 08:40 VBG HCO3 24 mmol/L (22-28) 06/08/19 08:40 VBG Total CO2 21 mmol/L (22-29) L 06/08/19 08:40 VBG O2 Saturation 91 % (70-80) H 06/08/19 08:40 VBG Base Excess -0.8 mmol/L (-3-3) 06/08/19 08:40 Sodium 139 mmol/L (136-145) 06/09/19 06:15 Potassium 4.3 mmol/L (3.5-5.1) D 06/09/19 06:15 Chloride 107 mmol/L (98-107) 06/09/19 06:15 Carbon Dioxide 22.3 mmol/L (21.0-32.0) 06/09/19 06:15 Anion Gap 9.7 mmol/L (3-11) 06/09/19 06:15 BUN 10 mg/dL (7-18) D 06/09/19 06:15 Creatinine 0.59 mg/dL (0.55-1.02) 06/09/19 06:15 Estimated GFR/1.73 m2 >= 60.00 (mL/min/1.73m2) 06/09/19 06:15 Glucose 135 mg/dL (74-106) H 06/09/19 06:15 Calcium 8.4 mg/dL (8.5-10.1) L 06/09/19 06:15 Total Bilirubin 0.3 mg/dL (0.2-1.0) 06/09/19 06:15 AST 60 U/L (15-37) H 06/09/19 06:15 ALT 35 U/L (14-59) 06/09/19 06:15 Alkaline Phosphatase 103 U/L (46-116) 06/09/19 06:15 Troponin I < 0.05 ng/Ml (<0.06) 06/08/19 11:33 NT-Pro-B Natriuret Pep 5 pg/mL (<300) 06/08/19 08:40 Total Protein 6.2 g/dL (6.4-8.2) L 06/09/19 06:15 Albumin 2.4 g/dL (3.4-5.0) L 06/09/19 06:15 Procalcitonin 0.2 ng/mL 06/08/19 11:33 TSH 0.02 uIU/mL (0.36-3.74) L 06/09/19 06:15 Free T4 1.51 ng/dL (0.76-1.46) H 06/09/19 06:15
[2019-06-09] MEDS: VANCOMYCIN 750 MG in Normal Saline 250 ML 166.7 MG IV ×2 (11:16→22:15)
--- NOTE | 2019-06-09 11:50 | PHA.ADMREV ---
Pharmacy Clinical Review - Admission Clinical Review (Last Updated 06/08/19 @ 14:26 by Demetrio Maya) Discharge planning issues (Acute) Influenza (Acute) Pneumonia (Acute) Hypoxemia (Acute) codeine Allergy (Mild, Unverified 03/31/19 10:46) Height 5 ft Weight 55.4 kg - Renal Dosing Renal Dosing: BUN 10 mg/dL (7-18) D 06/09/19 06:15 Creatinine 0.59 mg/dL (0.55-1.02) 06/09/19 06:15 Medications needing adjustments: N/A (Crcl ~64.5 mL/min using ideal body weight) - Anticoagulation Anticoagulation: Hgb 11.8 g/dL (12.0-15.5) L 06/09/19 06:15 Hct 36.0 % (36.0-46.0) 06/09/19 06:15 Plt Count 145 x1000/uL (130-400) 06/09/19 06:15 INR 1.1 (0.9-1.1) 06/08/19 08:40 Creatinine 0.59 mg/dL (0.55-1.02) 06/09/19 06:15 DVT Prohphylaxis: Reviewed Medications: Enoxaparin Therapeutic Anticoagulation: N/A - Opiate Usage Evaluate Pain Scale/Pains Meds: N/A - Relevant Labs Sodium 139 mmol/L (136-145) 06/09/19 06:15 Potassium 4.3 mmol/L (3.5-5.1) D 06/09/19 06:15 Chloride 107 mmol/L (98-107) 06/09/19 06:15 Electrolytes, C-Reactive P, ESR: Reviewed - Antimicrobial Stewardship Antibiotic appropriateness: Reviewed Surgical Abx d/c within 24 hr: N/A De-escalation: No Culture review/Resistance: Reviewed (blood cultures pending, rapid flu positive for flu A antigen, sputum culture pending) IV to PO Switch: No - DM Control DM Control: Glucose 135 mg/dL (74-106) H 06/09/19 06:15 Insulin Dosing: N/A - Heart Failure/SC Heart Failure/SC: Troponin I < 0.05 ng/Ml (<0.06) 06/08/19 11:33 NT-Pro-B Natriuret Pep 5 pg/mL (<300) 06/08/19 08:40 EF%, YSABEL's, B-Blockers, Diuretics: N/A - BP Control BP Control: Blood Pressure [Left Arm] 98/67 Blood Pressure 104/56 Blood Pressure 102/47 Blood Pressure 94/79 Blood Pressure 98/54 If elevated: N/A - QTc Review If Elevated: N/A (QTc 431) - IV to PO Switch IV Medications: N/A - Home Meds Home Med List reviewed: Reviewed Relevent Home Meds Not ordered & why?: ibuprofen - Current meds Current Medication Order Review: Intervened (d/c'd DI meds that had already been given) - Comments Comments/Follow Ups: watch for culture results/narrowing of antibiotics
--- NOTE | 2019-06-09 12:13 | W.NUTCONSULT ---
Date of service: 06/09/19 Time of Service: 12:14 Nutritional Consult ASSESSMENT: 68 year old female admitted with PNA. PMH: COPD, smoker. BMI wnl. Following regular meal plan with poor appetite. Will continue to monitor po intake, weights and adjust meal plan for optimal intake. MONITORING AND EVALUATION: weight, po intake, labs Time Spent in Nutritional Counseling and Treatment: 0 time spent face to face
[2019-06-09] MEDS: Nicotine 21 MG/24 HR PATCH TD (15:20)
[2019-06-09] MEDS: Enoxaparin 40 MG/0.4 ML SYR SC (15:21)
[2019-06-09] MEDS: levoFLOXacin 750 MG/150 ML BAG 100 MG IVPB (20:40)
[2019-06-10] VITALS (10 sets, daily range): BP systolic 101–131; BP diastolic 62–78; PULSE 67–76; RESP 7–20; TEMP 36.3–37.2; O2SAT 89–99
[2019-06-10] MEDS: Albuterol/Ipratropium 3 ML UPD VIAL UPD ×3 (00:13→12:00)
[2019-06-10] MEDS: POTASSIUM CHLORIDE/0.9% NACL 1,000 ML 100 MEQ IV (00:17)
[2019-06-10] MEDS: Levothyroxine 100 MCG TAB PO (05:49)
[2019-06-10] MEDS: PIPERACILLIN/TAZO 4.5 GM in Normal Saline 100 ML IVPB ×3 (05:49→21:04)
[2019-06-10] MEDS: VANCOMYCIN 750 MG in Normal Saline 250 ML 166.7 MG IV (05:49)
[2019-06-10] MEDS: guaiFENesin 600 MG TABCR PO ×2 (09:11→21:04)
[2019-06-10] MEDS: Nicotine 21 MG/24 HR PATCH TD (09:11)
[2019-06-10] MEDS: Cholecalciferol (Vitamin D3) 1,000 UNIT TAB 1000 UNITS PO (09:11)
[2019-06-10] MEDS: Oseltamivir 75 MG CAP PO ×2 (09:11→21:04)
--- NOTE | 2019-06-10 11:38 | W.PM.PROGNOT ---
Date of Service Date of service: 06/10/19 Time of Service: 11:38 Assessment and Plan Assessment and plan (1) Pneumonia: Status: Acute Assessment and plan: Patient continues to improve and that she is afebrile. Repeat CBC again shows no leukocytosis. Her oxygen requirements are declining. She is now start to mobilize her sputum when she coughs. She will continue on her current regimen of vancomycin, Levaquin, Zosyn for severe community-acquired post influenza pneumonia. Today is day 3 of antibiotics. Qualifiers: Pneumonia type: due to unspecified organism Laterality: left Lung location: lower lobe of lung Qualified Code(s): J18.9 - Pneumonia, unspecified organism (2) Influenza: Status: Acute Assessment and plan: Continue Tamiflu for 5-day course. Through June 13, 2019 at 2000 (3) DVT prophylaxis: Status: Acute Assessment and plan: Currently receiving DVT prophylaxis with enoxaparin (4) Discharge planning issues: Status: Acute Assessment and plan: Discharge home once she is complete her antibiotic treatment. Subjective Subjective Interval history since last seen: Overall the patient is improving. She is less dyspneic with ADLs. Cough is harsh at times and paroxysmal and she start to mobilize sputum. Her oxygen flow has been weaned down to 1 L per nasal cannula and her oxygen saturation is 96%. She remains afebrile and not tachypneic. I explained her that I would like her to complete at least 5 days of parenteral antibiotics since this is a post influenza pneumonia and a higher risk for staph. She states she was able to cough up a specimen so hopefully this will help guide our antibiotic treatment. Blood cultures remain no growth at this time. Patient continues to receive Zosyn and vancomycin and Levaquin and Tamiflu. Exam Narrative Exam Narrative: Elderly female sitting up in her chair. She just finished bathing and is now dressed. During my interview with her today she had a paroxysm of coughing but was not able to mobilize any sputum. Lungs reveal coarse rhonchi at the right lung base and some rales at the left base along with diffuse end expiratory wheezes. Heart is regular rate and rhythm without murmur rub or gallop. Abdomen is soft and nontender. Lower extremities without peripheral cyanosis or edema. Objective Objective Clinical Data: Vital Signs Temperature 37.2 C 06/10/19 07:33 Temperature Source Tympanic 06/10/19 07:33 Pulse 72 06/10/19 07:33 Pulse Rhythm Regular 06/09/19 23:38 Pulse 66 06/09/19 15:26 Respiratory Rate 18 06/10/19 08:29 Respiratory Effort 06/10/19 08:29 Respiratory Depth Normal 06/10/19 08:29 Respiratory Pattern Normal 06/10/19 08:29 Blood Pressure 101/62 06/10/19 07:33 Blood Pressure Mean 61 06/09/19 15:26 Blood Pressure Position Sitting 06/08/19 13:54 Pulse Oximetry 96 06/10/19 10:24 Oxygen Delivery Method Nasal Cannula 06/10/19 10:24 Oxygen Flow Rate 1 06/10/19 10:24 Fraction of Inspired Oxygen (FIO2) 21 06/09/19 09:35 Pain Level 0 06/10/19 07:33 Intake & Output 06/09/19 06/09/19 06/10/19 11:59 23:59 11:59 Intake Total 2143.334 / 2993.334 850 / 2993.334 690 / 690 Output Total 1025 / 1825 800 / 1825 Balance 1118.334 / 1168.334 50 / 1168.334 690 / 690 Weight 55.4 kg 52.3 kg Intake: IV 1783.334 / 2633.334 850 / 2633.334 100 / 100 Oral 360 / 360 590 / 590 Output: Urine 1025 / 1825 800 / 1825 Other: Urine Color Yellow Urine Appearance Clear Clear Urine Odor Normal Comment Mixed with soft stool Urine volume amount includes moderate amount of loose still mixed in. Stool Occult Blood Negative Stool Size Small Moderate Stool Characteristics Liquid Brown Brown Voiding Methods Bedside Commode Bedside Commode Laboratory Results WBC 5.25 k/cumm (4.4-10.8) D 06/09/19 06:15 RBC 4.49 m/cumm (4.00-5.20) 06/09/19 06:15 Hgb 11.8 g/dL (12.0-15.5) L 06/09/19 06:15 Hct 36.0 % (36.0-46.0) 06/09/19 06:15 MCV 80.2 fL (80-95) 06/09/19 06:15 MCH 26.3 pg (27.0-33.0) L 06/09/19 06:15 MCHC 32.8 g/dL (32.0-36.0) 06/09/19 06:15 RDW 15.5 % (11.7-14.6) H 06/09/19 06:15 Plt Count 145 x1000/uL (130-400) 06/09/19 06:15 MPV 11.0 fL (8.0-11.0) 06/09/19 06:15 Immature Gran % 0.4 % 06/09/19 06:15 Neutrophils % 79.6 06/09/19 06:15 Lymphocytes % 14.1 06/09/19 06:15 Atypical Lymphs % 3 06/08/19 08:40 Monocytes % 5.7 06/09/19 06:15 Eosinophils % 0.0 06/09/19 06:15 Basophils % 0.2 06/09/19 06:15 Absolute Neutrophils 4.18 k/cumm (1.2-6.7) 06/09/19 06:15 Absolute Lymphocytes 0.74 k/cumm (1.2-3.4) L 06/09/19 06:15 Absolute Monocytes 0.30 k/cumm (0.11-0.7) 06/09/19 06:15 Absolute Eosinophils 0.00 k/cumm (0.0-0.7) 06/09/19 06:15 Absolute Basophils 0.01 k/cumm (0.0-0.2) 06/09/19 06:15 Differential Comment Manual differential 06/08/19 08:40 RBC Morphology Normal 06/08/19 08:40 PT 10.6 sec (9.3-11.0) 06/08/19 08:40 INR 1.1 (0.9-1.1) 06/08/19 08:40 APTT 34.4 sec (21.0-31.4) H 06/08/19 08:40 D-Dimer 2081 ng/mlFEU (<500) H 06/08/19 08:40 VBG pH 7.42 (7.35-7.45) 06/08/19 08:40 VBG pCO2 37 mm/Hg (34-47) 06/08/19 08:40 VBG pO2 56 mm/Hg (28-44) H 06/08/19 08:40 VBG HCO3 24 mmol/L (22-28) 06/08/19 08:40 VBG Total CO2 21 mmol/L (22-29) L 06/08/19 08:40 VBG O2 Saturation 91 % (70-80) H 06/08/19 08:40 VBG Base Excess -0.8 mmol/L (-3-3) 06/08/19 08:40 Sodium 139 mmol/L (136-145) 06/09/19 06:15 Potassium 4.3 mmol/L (3.5-5.1) D 06/09/19 06:15 Chloride 107 mmol/L (98-107) 06/09/19 06:15 Carbon Dioxide 22.3 mmol/L (21.0-32.0) 06/09/19 06:15 Anion Gap 9.7 mmol/L (3-11) 06/09/19 06:15 BUN 10 mg/dL (7-18) D 06/09/19 06:15 Creatinine 0.59 mg/dL (0.55-1.02) 06/09/19 06:15 Estimated GFR/1.73 m2 >= 60.00 (mL/min/1.73m2) 06/09/19 06:15 Glucose 135 mg/dL (74-106) H 06/09/19 06:15 Calcium 8.4 mg/dL (8.5-10.1) L 06/09/19 06:15 Total Bilirubin 0.3 mg/dL (0.2-1.0) 06/09/19 06:15 AST 60 U/L (15-37) H 06/09/19 06:15 ALT 35 U/L (14-59) 06/09/19 06:15 Alkaline Phosphatase 103 U/L (46-116) 06/09/19 06:15 Troponin I < 0.05 ng/Ml (<0.06) 06/08/19 11:33 NT-Pro-B Natriuret Pep 5 pg/mL (<300) 06/08/19 08:40 Total Protein 6.2 g/dL (6.4-8.2) L 06/09/19 06:15 Albumin 2.4 g/dL (3.4-5.0) L 06/09/19 06:15 Procalcitonin 0.2 ng/mL 06/08/19 11:33 TSH 0.02 uIU/mL (0.36-3.74) L 06/09/19 06:15 Free T4 1.51 ng/dL (0.76-1.46) H 06/09/19 06:15
[2019-06-10] MEDS: Benzonatate 200 MG CAP PO ×2 (13:55→21:04)
--- NOTE | 2019-06-10 15:31 | PDOC.CMPRO ---
- If Service Date Differs Date of service: 06/10/19 Time of Service: 15:32 Care Management Progress Note S/O: Linh was sitting up in bed when CM met with her. She stated that she is feeling much better today but that the coughing tires her out. Linh requested that she be able to add names to her HIPAA form and CM facilitated completing a new document. She does not anticipate needing any additonal services at discharge. A: Linh is a pleasant 68 year old woman admitted on 06/08/19 with Influenza and pneumonia. P:Linh will likely be discharged home with no new services. She will follow up with her PCP and discharge plan of care. CM will continue to provide support to patient, family and discharge planning needs.
[2019-06-10 15:49] LABS: Vancomycin, Trough 14.3 ug/mL (10.0-20.0)
--- NOTE | 2019-06-10 16:35 | CHAPLAIN ---
I introduce myself to Linh and offered support. She wasn't interested in a further conversation at this point.
[2019-06-10] MEDS: Enoxaparin 40 MG/0.4 ML SYR SC (16:38)
[2019-06-10 16:47] LABS: Streptococcus Pneumoniae Ag, U Negative (Negative)
[2019-06-10] MEDS: levoFLOXacin 750 MG/150 ML BAG 100 MG IVPB (18:30)
[2019-06-11] MEDS: Albuterol/Ipratropium 3 ML UPD VIAL UPD ×2 (00:58→05:28)
[2019-06-11] MEDS: PIPERACILLIN/TAZO 4.5 GM in Normal Saline 100 ML IVPB (05:28)
[2019-06-11] MEDS: Levothyroxine 100 MCG TAB PO (05:28)
[2019-06-11 08:10] VITALS: BP 150/78; PULSE 76; RESP 20; TEMP 36.6; O2SAT 94
[2019-06-11 08:15] VITALS: O2SAT 94
[2019-06-11] MEDS: Cholecalciferol (Vitamin D3) 1,000 UNIT TAB 1000 UNITS PO (08:16)
[2019-06-11] MEDS: guaiFENesin 600 MG TABCR PO (08:16)
[2019-06-11] MEDS: Benzonatate 200 MG CAP PO ×2 (08:16→14:31)
[2019-06-11] MEDS: Nicotine 21 MG/24 HR PATCH TD (08:16)
[2019-06-11] MEDS: Oseltamivir 75 MG CAP PO (08:16)
[2019-06-11 11:07] VITALS: PULSE 72; PULSE 80; PULSE 90; RESP 18; RESP 20; RESP 22; O2SAT 93; O2SAT 94; O2SAT 95
--- NOTE | 2019-06-11 14:05 | DSE_ITS ---
Date of service: 06/11/19 Time of Service: 14:05 DS: Diagnosis Discharge Diagnosis (1) Pneumonia: Status: Acute (2) Influenza: Status: Acute (3) Acute respiratory failure with hypoxia: Status: Resolved (4) Hypothyroidism (acquired): Status: Chronic (5) Iatrogenic hyperthyroidism: Status: Acute Discharge Plan Disposition Patient Disposition: HOME Condition: Improving Discharge Details Chief Complaint: SOB Clinical Impression: Influenza, Pneumonia, Hypoxemia Reason For Visit: PNEUMONIA INFLUENZA HYPOXEMIA Admit Date/Time: 06/08/19 12:29 Admit Provider: Demetrio Maya Attending Provider: Demetrio Maya Primary Care Provider: Gay Graham ED Provider: Danny Barksdale Hospital Course Hospital Course: Ms Crystal is a 68 year old female with PMHx of non-oxygen dependent COPD, hypothyroidism, tobacco abuse, who was admitted to [facility] ICU under the hospitalist service on 06/08/2019 for acute hypoxic respiratory failure requiring BIPAP, caused by community acquired pneumonia superimposed on influenza A infection. The patient did not receive systemic corticosteroids, but did receive empiric vancomycin, zosyn, and levofloxacin as well as scheduled and prn nebulizer treatments. Blood cultures as well as Sputum C&S have shown no growth to date. Her oxygen requirements have rapidly decreased, and she was able to be transferred out of ICU by hospital day 2 and be on room air by hospital day 4. She does not require oxygen on ambulation with ambulatory pulse ox of 93% on room air. She is being discharged home today with 4 more days of levofloxacin, the balance of her tamiflu course, and a prescription for albuterol inhaler. She is asked to follow up with her PCP within 1 week and is recommended to return to ED if she feels worse at home. The patient verbalized understanding of these instructions. A referral for outpatient PFTs has been placed. It is worth mentioning that the patient's TSH on this admission was 0.02. It was 0.01 1 month ago as checked by PCP. She is instructed to hold her levothyroxine for 1 week, then start taking a lower dose (75 mcg). PCP is to follow up on her hypothyroidism, now with evidence of iatrogenic hyperthyroidism. Care for patient as well as completion of her discharge summary on day of discharge took 45 minutes. Home Meds and New Rx's Prescriptions: New benzonatate 200 mg Capsule 200 mg PO TID PRN PRNQty: 30 RF: 0 oseltamivir [Tamiflu] 75 mg Capsule 75 mg PO BID Qty: 4 RF: 0 nicotine 21 mg/24 hr Patch 24 Hour 21 mg transdermal DAILY Qty: 30 RF: 0 levofloxacin 750 mg tablet 750 mg PO DAILY Qty: 4 RF: 0 albuterol sulfate [ProAir HFA] 90 mcg/actuation HFA aerosol inhaler 2 puff IH QID PRN (Reason: shortness of breath or wheezing) Qty: 18 RF: 0 levothyroxine 75 mcg capsule 75 mcg PO DAILY Qty: 30 RF: 0 Continued ibuprofen [IBU-200] 200 mg Tablet 400 mg PO QAM RF: 0 cholecalciferol (vitamin D3) [Vitamin D3] 25 mcg (1,000 unit) Tablet 1,000 unit PO DAILY RF: 0 Discontinued levothyroxine [Synthroid] 100 MCG tablet 100 mcg PO DAILY RF: 0 Discharge Instructions Instructions: Levofloxacin (By mouth), Oseltamivir (By mouth), How to Stop Smoking (DC), Influenza (DC), Bacterial Pneumonia (DC) Additional Instructions: Finish your tamiflu and levofloxacin as prescribed. Hold your levothyroxine for 1 week, then start taking the new dose. Return to the hospital with any fever, bleeding, worsening in shortness of breath, or chest pain. Follow up with your PCP within 1 week. Follow up for pulmonary function testing in 2 weeks. You must try to stop smoking! Referrals: Gay Graham MD [Primary Care Provider] - Activity:: Activity as Tolerated Equipment/Supplies:: No Equipment Needed Diet:: Normal Diet Discharge Orders Discharge Orders: Discharge Order (Routine); Ordered 06/11/19 Ordered By: Melvi Peters Other Ambulatory Orders: PFT (Sha/DLCO/Volumes) (Outpt) (ONCE) Timeframe: [id number] Facility: [facility] - Location: Respiratory Therapy Ordered By: Melvi Peters DS: Summary Status at Discharge Functional status at discharge: independent ambulation Overall status at discharge: patient is progressing back to baseline Mental Status: mental status grossly normal Speech and Movement: speech and movement normal Mood: congruent mood Affect: normal affect Exam Narrative Exam Narrative: General: Very pleasant middle-aged female, sitting comfortably at the edge of the bed, no cough or dyspnea observed HEENT: EOMI, MMM Heart: RRR, no m/r/g Lungs: slightly coarse breath sounds B Abdomen: soft, nontender, nondistended Extremities: no e/c/c BLE's Psych Mental Status: mental status grossly normal Speech and Movement: speech and movement normal Mood: congruent mood Affect: normal affect DS: Data Vitals/I&O Vitals and I&O: Vital Signs Temperature 36.6 C 06/11/19 08:10 Temperature Source Tympanic 06/11/19 08:10 Pulse 76 06/11/19 08:10 Pulse Rhythm Regular 06/11/19 08:15 Pulse 66 06/09/19 15:26 Respiratory Rate 20 06/11/19 08:10 Respiratory Effort 06/11/19 08:15 Respiratory Depth Normal 06/11/19 08:15 Respiratory Pattern Normal 06/11/19 08:15 Blood Pressure 150/78 H 06/11/19 08:10 Blood Pressure Mean 61 06/09/19 15:26 Blood Pressure Position Sitting 06/08/19 13:54 Pulse Oximetry 94 L 06/11/19 08:15 Oxygen Delivery Method Room Air 06/11/19 08:15 Oxygen Flow Rate 0 06/11/19 08:15 Fraction of Inspired Oxygen (FIO2) 21 06/09/19 09:35 Pain Level 0 06/11/19 08:10 Intake & Output 06/10/19 06/11/19 06/11/19 23:59 11:59 23:59 Intake Total 550 / 2590 100 / 100 Output Total 300 / 300 Balance 550 / 2590 -200 / -200 Intake: IV 300 / 1750 100 / 100 Oral 250 / 840 Output: Urine 300 / 300 Other: Urine Appearance Clear Clear Stool Characteristics Liquid Voiding Methods Toilet Data Completed and Pending Completed studies during hospitalization [Text1]: CXR 06/08/2019:Posterior basilar infiltrate. CTA chest 06/08/2019: Left lower lobe pneumonia. No evidence of pulmonary emboli. Labs on day of discharge: Labs from last 24 hours 06/10/19 15:26 Vancomycin Trough 14.3 06/11/19 05:35 Nose MRSA Screen - Pending Preliminary micro results at discharge 06/08/19 11:15 Blood Culture - Preliminary Blood NO GROWTH 72 HOURS 06/08/19 11:05 Blood Culture - Preliminary Blood NO GROWTH 72 HOURS 06/09/19 05:22 Sputum Culture - Preliminary Sputum Normal Nidia 06/11/19 05:35 MRSA Screen - Pending Nose [facility] Medical History (Updated 06/11/19 @ 14:36 by Melvi Pteers MD) COPD (chronic obstructive pulmonary disease) (Chronic) Hypothyroidism (acquired) (Chronic) Surgical History (Updated 06/08/19 @ 14:25 by Demetrio Maya) H/O section (Chronic) 3 pregnancies and 3 deliveries by Social History (Updated 06/08/19 @ 14:24 by Demetrio Maya) Smoking/Tobacco Use Status: Current every day Tobacco Type: cigarettes Tobacco: How many years used: 40 Alcohol Intake: never Drug use: Never Substance use type: does not use Do you feel safe at home: Yes Do you feel safe in your relationship?: Yes History History 3 Para 3 Hx # Term Pregnancies 3 Multiple births Hx # Pregnancies Ectopic pregnancies AB induced Hx Number of Living Children 3 AB spontaneous
[2019-06-11 15:25] VITALS: BP 154/88; PULSE 68; RESP 18; TEMP 36.9; O2SAT 93
--- NOTE | 2019-06-11 17:31 | PDOC.CMDIS ---
- If Service Date Differs Date of service: 06/11/19 Time of Service: 17:31 LACE Index Scoring Tool - Questions: Length of Stay (in days): 3 Acuity (Admit via E.D.?): Yes Comorbidities: Chronic Pulmonary Disease E.D. Visits: 2 - Answers: Total Score: 10 Risk of Readmission: High Risk Care Management Discharge Reason for Hospitalization: Pneumonia Discharge Plan: Linh will return home with no additional services at this time. She will follow up with her PCP, as recommended. She will transport home via private vehicle driven by family. She is agreeable to the plan. Patient/Family Education Needs: Review discharge instructions regarding activity levels and medications, discussion of self care needs including ask me three
== END 2019-06-11 16:07 | disposition home or self-care (01) | DRG 193 ==
LOC: ER 12:58 → ICU 13:32 → MS 06-09 18:19
PROVIDERS: Admitting Provider Internal Medicine; Emergency Provider Student in an Organized Health Care Education/Training Program; PCP Family Medicine; Visit Provider Internal Medicine
DX: J10.00 Influenza due to other identified influenza virus with unspecified type of pneumonia (principal); J96.01 Acute respiratory failure with hypoxia; J44.0 Chronic obstructive pulmonary disease with (acute) lower respiratory infection; K21.9 Gastro-esophageal reflux disease without esophagitis; E78.00 Pure hypercholesterolemia, unspecified; E03.9 Hypothyroidism, unspecified; F17.210 Nicotine dependence, cigarettes, uncomplicated; E05.80 Other thyrotoxicosis without thyrotoxic crisis or storm; T38.1X5A Adverse effect of thyroid hormones and substitutes, initial encounter
CPT/HCPCS: 36410; 36415; 71275; 80053; 82805; 84145; 87040; 87081; 87449; 93005; 94618; 94640; 96361; 96365; 96366; 96367; 96375; 99223; 99232; 99233; 99239; 99285; J1650; 71046; 80202; 83880; 84439; 84443; 84484; 85025; 85379; 85610; 85730; 87070; 87205; 87450; 93010; J1956; J2543; J2930; J3490; J7620

== ENCOUNTER 2019-09-12 09:17 | Outpatient (CLI) | payer MEDICARE, SELFPAY ==
--- NOTE | 2019-09-12 | DI.RAD_ITS ---
EXAM: XR KNEE LT 3V AP,LAT,ISSAC CLINICAL HISTORY: LT KNEE PAIN, M25.562 TECHNIQUE: COMPARISON: No exams were available for comparison FINDINGS: Three views were obtained. There appears to be slight narrowing of the medial tibiofemoral cartilagi nous joint space. Remainder of the joint spaces are well maintained. There is a superior enthesophyte of the patella. No other significant bony abnormality seen. IMPRESSION: Mild degenerative changes as described above.
--- NOTE | 2019-09-12 | DI.RAD_ITS ---
EXAM: XR HIP LT COMPLETE AP PELVIS CLINICAL HISTORY: LT HIP PAIN, M25.552 TECHNIQUE: COMPARISON: CT CT CHEST PE CTA from 06/08/2019 FINDINGS: Two views were obtained. There are degenerative changes of the lumbar spine and SI joints bilaterall y. There is slight narrowing of the cartilaginous joint space of the right hip superiorly with mild acet abular spurring noted. No abnormality of the right femoral head. On the left, there is marked narrowing of the superior cartilaginous joint space of the hip with very prominent acetabular marginal osteophyte formation particularly laterally. There is probable subcho ndral cyst formation and sclerosis the femoral head and acetabulum. Mild deformity of the femoral he ad cortex may be present superiorly and centrally. IMPRESSION: Severe DJD left hip. Mild DJD right hip.
== END 2019-09-12 09:37 ==
PROVIDERS: PCP Family Medicine; Visit Provider Family Medicine
DX: M25.552 Pain in left hip (principal); M16.0 Bilateral primary osteoarthritis of hip; M53.3 Sacrococcygeal disorders, not elsewhere classified; M25.562 Pain in left knee; M17.12 Unilateral primary osteoarthritis, left knee
CPT/HCPCS: 73562; 73502

== ENCOUNTER 2019-09-12 10:31 | Outpatient (REF) | payer MEDICARE, SELFPAY ==
[2019-09-12 17:26] LABS: Calculated LDL 205 mg/dL (<100); Cholesterol 279 mg/dL (<200); HDL Cholesterol 32 mg/dL (40-60); TSH (W/Ref FT4) 1.75 uIU/mL (0.36-3.74); Triglyceride 211 mg/dL (<150)
== END 2019-09-12 10:51 ==
LOC: NCHCN 10:31
PROVIDERS: PCP Family Medicine; Visit Provider Family Medicine
DX: E03.9 Hypothyroidism, unspecified (principal); E78.5 Hyperlipidemia, unspecified
CPT/HCPCS: 80061; 84443

== ENCOUNTER 2019-09-13 08:20 | Outpatient (CLI) | payer MEDICARE, SELFPAY ==
[2019-09-14 03:52] LABS: COVID-19 RT-PCR UVMMC Result Negative (Negative)
== END 2019-09-13 08:40 ==
PROVIDERS: PCP Family Medicine; Visit Provider Family Medicine
DX: Z11.59 Encounter for screening for other viral diseases (principal)
CPT/HCPCS: U0003

== ENCOUNTER 2019-09-16 02:48 | Outpatient (CLI) | payer MEDICARE, SELFPAY ==
--- NOTE | 2019-09-19 16:07 | W.PFT ---
Date of service: 09/16/19 Time of Service: 08:09 Pulmonary Function Test Result Interpretation Spirometry: Spirometry shows somewhat suboptimal patient effort, mild obstructive airways disease with no significant bronchodilator response. Lung Volumes: Lung volumes show no evidence of restriction Diffusion Capacity: Diffusion capacity is severely reduced which is moderately reduced when corrected to alveolar volume which represents a slightly suboptimal patient effort Airway Pressure: Airways resistance is normal Impression Borderline mild obstructive airways disease though this represents a suboptimal patient effort. There is severe diffusion defect which is moderately reduced when corrected to alveolar volume, and again this is also a slightly suboptimal patient effort. Nonetheless this constellation of finding can be seen in noncommunicating bullous disease. Therefore clinical correlation recommended.This study was compared to previous ones from 12/17/2010 and 08/29/2014 the patient has a slight decline in diffusion capacity and an overall 300 cc decline in FVC from 2014, and 200 cc decline in FEV1 from 2015. Clinical Correlation therefore is recommended.
== END 2019-09-16 03:08 ==
PROVIDERS: PCP Family Medicine; Visit Provider Family Medicine
DX: J44.9 Chronic obstructive pulmonary disease, unspecified (principal); R05 Cough; F17.210 Nicotine dependence, cigarettes, uncomplicated
CPT/HCPCS: 94060; 94726; 94729

== ENCOUNTER → 2020-03-19 14:24 | Outpatient (CLI) | payer MEDICARE, SELFPAY ==
--- NOTE | 2020-03-19 | DI.MRI_ITS ---
EXAM: MR ANGIO NECK WO CLINICAL HISTORY: HEARING LOSS RT EAR, H91.91, ATAXIA, R27.0, DIZZINESS, R42. TECHNIQUE: Multiplanar multisequence MRI was performed. COMPARISON: No exams were available for comparison FINDINGS: MR angiography of the cervical region was performed according to the usual protocol utilizing 2D and 3D time of flight protocols. The anterior and posterior circulation is visualized from the level of the thoracic outlet to the level of the skull base. Visualized common carotid arteries appear normal bilaterally. Visualized internal carotid arteries appear normal bilaterally, no dissection or stenosis. External carotid circulation appears intact as visualized. The vertebral arteries are not ideally visualized at the cervical cranial junction but there is no ev idence of dissection, stenosis, or occlusion. IMPRESSION: Negative MR angiography of the carotid and vertebral circulation in the cervical region. Please note that aortic arch and intrathoracic portions of the carotid and vertebral circulation are not visuali zed on this study. DATA REPOSITORY:
--- NOTE | 2020-03-19 | DI.MRI_ITS ---
EXAM: MR BRAIN WO CLINICAL HISTORY: HEARING LOSS RT EAR, H91.91, ATAXIA, R27.0, DIZZINESS, R42 TECHNIQUE: Multiplanar multisequence MRI of the brain was performed. COMPARISON: No exams were available for comparison FINDINGS: There is mild generalized cerebral atrophy. There are multiple areas of increased signal seen in periventricular white matter sparing the corpus callosum. Mildly abnormal signal also noted in the buddy. The pattern is consistent with microvascul ar ischemic changes. The orbital and temporal bone structures appear intact as does the pituitary. Diffusion weighted imaging shows no evidence of infarction. Susceptibility weighted imaging shows no evidence of intracranial hemorrhage. There is normal flow void in the [place] vasculature. IMPRESSION: White matter areas of presumed microvascular ischemia in both cerebellar hemispheres and the buddy. No other specific findings. DATA REPOSITORY:
--- NOTE | 2020-03-19 12:35 | DI.MRI_ITS ---
EXAM: MR ANGIO BRAIN WO INDICATION: HEARING LOSS RT EAR, H91.91, ATAXIA, R27.0, DIZZINESS, R42. COMPARISON: No exams were available for comparison TECHNIQUE: MR angiography of the afmfga-rw-Dwsleg region was performed utilizing 3D [id number] i maging. FINDINGS: The visualized internal carotid arteries appear intact, no aneurysm, stenosis, or dissection. Visualized vertebral arteries appear intact, no aneurysm, stenosis or dissection. Basilar artery appears normal, no aneurysm, stenosis, or dissection. The anterior cerebral arteries and major branch vessels appear intact. No aneurysm, stenosis, or dis section. The middle cerebral arteries and major branch vessels appear intact. No aneurysm, stenosis, or disse ction. The posterior cerebral arteries and major branch vessels appear intact. No aneurysm, stenosis, or di ssection. IMPRESSION: Negative MR angiography, [id number] region.
--- NOTE | 2020-03-19 13:00 | DI.US_ITS ---
APPROVED REPORT EXAM: Comprehensive 2D, Doppler, and color-flow Echocardiogram Patient Location: Out-Patient Latex Dipper: Chloe Duncan RDCS (AE) Indications: COPD, Dyspnea Other Information Study Quality: Adequate Conclusion Left Ventricle : The left ventricle is normal size. The left ventricular systolic function is normal. The left ventricular ejection fraction is within the normal range. There is normal left ventricular wall thickness. There is normal LV segmental wall motion. The left ventricular diastolic function is normal. LVEF is 55-60%. Right Ventricle : The right ventricle is normal size. The right ventricular systolic function is norm al. The RVSP is 32.6mmHg. Atria : The left atrium size is normal. The right atrium size is normal. Valves: There are no significant valvular lesions Great Vessels : The aortic root is normal in size. The ascending aorta is normal in size. Aortic arch is normal in caliber. The IVC collapses <50% with inspiration. Please see remainder of study for further detail. Wall motion Left Ventricle The left ventricle is normal size. The left ventricular systolic function is normal. The left ventric ular ejection fraction is within the normal range. There is normal left ventricular wall thickness. T here is normal LV segmental wall motion. The left ventricular diastolic function is normal. There is no ventricular septal defect visualized. LVEF is 55-60%. Right Ventricle The right ventricle is normal size. The right ventricular systolic function is normal. The RVSP is 32 .6mmHg. Atria The left atrium size is normal. The right atrium size is normal. The interatrial septum is intact wit h no evidence for an atrial septal defect. Aortic Valve The Aortic valve is sclerotic. Aortic valve is trileaflet. There is no aortic valvular stenosis. No a ortic regurgitation is present. Mitral Valve Mild mitral annular calcification. No evidence of mitral valve stenosis. Trace mitral regurgitation. Tricuspid Valve The tricuspid valve is normal in structure. There is no tricuspid valve stenosis. Trace tricuspid reg urgitation. Pulmonic Valve The pulmonary valve is normal in structure. There is no pulmonic valvular stenosis. Trace pulmonic re gurgitation. Great Vessels The aortic root is normal in size. The ascending aorta is normal in size. Aortic arch is normal in ca liber. The IVC collapses <50% with inspiration. Pericardium There is no pericardial effusion. 2D Dimensions IVSD d PLAX 0.96 cm F: 0.6-1.0 LV Vol A2C d MOD 72.8 mL LVPW d PLAX 0.98 cm F: 0.6 - 1.0 LV Vol A4C d MOD 72.2 mL LVID d PLAX 4.01 cm F: 3.8 - 5.2 LA vol/ BSA A2C s A-L 23.6 mL/m2 LVDs 2.75 cm F: 2.2 - 3.5 LA vol/ BSA A4C s A-L 21.9 mL/m2 Ao Root d 2.69 cm F: 2.7 - 3.3 LA Vol/ BSA Biplane s A-L 24.1 mL/m2 RA Area A4C 8.78 cm2 LA Area A4C s MOD 13.89 cm2 RA Vol/ BSA A4C s A-L 11.7 mL/m2 LA Area A2C s MOD 13.56 cm2 Ao Asc Diam d 3.03 cm F: 2.3 - 3.1 LV EF A4C MOD 57.9 % LV EF Teichholz 58.6 % LV EF A2C MOD 59.4 % LVEF (Almaraz's) 57.23 % F: 54 - 74 LV EF Biplane MOD 57.2 % LV Volume 60.64 mL F: 46 - 106 SV 41.67 mL LV Volume Index 40.42 mL/m2 F: 29 - 61 SV Index 27.74 mL/m2 LV Vol Biplane MOD 72.8 mL FS 30.55 % M-Mode TAPSE 2.45 cm (M/F) >1.7 LV Diastology MV E' medial 0.118 (>0.07 m/s) E/A Ratio 1.2 LV E/e MED 7.10 (<14) MV E Vmax 0.84 (0.4-1.3 m/s) MV E' lateral 0.112 (>0.1 m/s) MV A Vmax 0.70 (0.4-1.3 m/s) LV E/e LAT 7.45 (<14) MV E/A Ratio 1.14 MV E/E' medial 7.11 MV E/E' lateral 7.48 Aortic Valve LVOT Area 3.07 cm2 AoV Area Vmax 2.07 cm2 LVOT Vmax 0.95 m/s AoV Area/ BSA (Vmax) 1.38 cm2/m2 LVOT Mean Austin. 0.56 m/s SARA Mean [place]. 1.99 cm2 LVOT Peak Grad 3.6 mmHg SARA Mean [place]. Index 1.32 cm2/m2 LVOT Mean Grad 1.5 mmHg LVOT VTI 0.233 m LVOT Diam s 1.95 cm AoV Vmax 1.40 m/s Velocity Ratio 0.67 AoV Mean Austin. 0.86 m/s AoV Peak Grad 7.8 mmHg LVOT SV 71.36 mL AoV Mean Grad 3.5 mmHg AoV VTI 0.298 m AoV Area VTI 2.40 cm2 AoV Area/ BSA (VTI) 1.59 cm/m2 Mitral Valve MV DT 201 (160-240 msec) MV PHT 58 msec MV Area PHT 3.77 cm2 Pulmonary Valve PV Vmax 0.87 (0.5-1.5 m/s) RVOT Peak Gr. 1.38 mmHg PV Peak Grad 3.1 mmHg RVOT Mean Gr. 0.70 mmHg PV Mean Grad 1.4 mmHg RVOT VTI 0.154 m PV VTI 0.208 m RVOT Vmax 0.59 m/s Tricuspid Valve TR Peak Grad 24.6 mmHg TR Vmax 2.48 m/s RA Pressure 8.00 mmHg RVSP (TR) 32.6 mmHg
== END ==
PROVIDERS: PCP Family Medicine; Visit Provider Family Medicine
DX: J44.9 Chronic obstructive pulmonary disease, unspecified; R06.00 Dyspnea, unspecified; H91.91 Unspecified hearing loss, right ear; R42 Dizziness and giddiness; G93.89 Other specified disorders of brain
CPT/HCPCS: 70544; 70547; 93306; 70551

== ENCOUNTER → 2020-05-08 02:12 | Outpatient (CLI) | payer OTHER, SELFPAY ==
--- NOTE | 2020-05-08 | DI.MRI_ITS ---
EXAM: MR IAC BRAIN WO/W CLINICAL HISTORY: BILAT ASYMMETRIC HEARING LOSS,H90.3,TINNITUS,H93.13,IMPAIRMENT OF AUDITORY. TECHNIQUE: Multiplanar multisequence MRI of the brain and internal auditory canals was performed. CONTRAST MATERIAL: IV Contrast: 11 mL of Magnevist contrast administered. COMPARISON: MR MR BRAIN WO from 03/19/2020 MR MR ANGIO BRAIN WO from 03/19/2020 FINDINGS: VENTRICLES AND EXTRA AXIAL SPACES: Normal in size and morphology for the patient's age. HEMORRHAGE: None. CEREBRAL PARENCHYMA: Stable findings of multiple high signal foci in the white matter, including the buddy. No focus of restricted diffusion to suggest acute infarct. No space-occupying lesion identifie d. MIDLINE SHIFT: None. BRAINSTEM/CEREBELLUM: Normal. ENHANCEMENT: No suspicious enhancement identified. VISUALIZED PARANASAL SINUSES/MASTOIDS: Clear. Orbits: Unremarkable. IAC/CP ANGLE: The internal auditory canals are within normal limits. The cerebellar pontine angles ar e unremarkable. No enhancing lesions are seen. Visualized portion of the facial nerves appear within normal limits. IMPRESSION: Stable high signal foci in the white matter, presumably secondary to small vessel disease. Unremarka ble internal auditory canals. DATA REPOSITORY:
[2020-05-08 10:18] LABS: CREATININE 0.71 mg/dL (0.55-1.02)
[2020-05-08] MEDS: Gadoterate meglumine 20 ML VIAL 11 ML IVP (10:40)
[2020-05-08] MEDS: Normal Saline Flush 10 ML SYR IVP (10:40)
== END ==
PROVIDERS: PCP Family Medicine; Visit Provider Otolaryngology Otolaryngology/Facial Plastic Surgery
DX: H90.3 Sensorineural hearing loss, bilateral (principal); H93.13 Tinnitus, bilateral; G93.89 Other specified disorders of brain
CPT/HCPCS: 70553; 82565

== ENCOUNTER 2020-09-06 15:01 | Outpatient (REF) | payer OTHER, SELFPAY ==
[2020-09-06 15:28] LABS: HCT 44.2 % (36.0-46.0); HGB 14.6 g/dL (11.2-15.7); MCH 28.5 pg (27.0-33.0); MCV 86.2 fL (80-95); MPV 11.7 fL (8.0-11.0); Platelet Count 219 10^3/uL (130-400); RBC 5.13 10^6/uL (3.93-5.22); RDW 13.7 % (11.7-14.6); RDW-SD 43.7 fL; WBC 7.96 10^3/uL (4.4-10.8)
[2020-09-06 17:04] LABS: Hemoglobin A1C 5.8 % (<5.7)
[2020-09-06 17:13] LABS: ALT 28 U/L (14-59); AST 15 U/L (15-37); Alkaline Phosphatase 158 U/L (46-116); Anion Gap 7.5 mmol/L (3-11); BUN 13 mg/dL (7-18); Bilirubin, Total 0.2 mg/dL (0.2-1.0); CO2 27.5 mmol/L (21.0-32.0); CREATININE 0.6 mg/dL (0.55-1.02); Calcium 9.6 mg/dL (8.5-10.1); Calculated LDL 105 mg/dL (<100); Chloride 101 mmol/L (98-107); Cholesterol 170 mg/dL (<200); Glucose 86 mg/dL (74-106); HDL Cholesterol 29 mg/dL (40-60); Potassium 4.2 mmol/L (3.5-5.1); Sodium 136 mmol/L (136-145); TSH (W/Ref FT4) 12.78 uIU/mL (0.36-3.74); Total Protein 7.5 g/dL (6.4-8.2); Triglyceride 182 mg/dL (<150)
[2020-09-06 18:11] LABS: FREE T4 0.94 ng/dL (0.76-1.46); Lipase 488 U/L (73-393)
== END 2020-09-06 15:02 | disposition home or self-care (01) ==
LOC: NCHCN 15:01
PROVIDERS: PCP Family Medicine; Visit Provider Family Medicine
DX: R03.0 Elevated blood-pressure reading, without diagnosis of hypertension (principal); E78.5 Hyperlipidemia, unspecified; E03.9 Hypothyroidism, unspecified; R10.9 Unspecified abdominal pain; R73.09 Other abnormal glucose
CPT/HCPCS: 80053; 80061; 83690; 85027; 83036; 84439; 84443

== ENCOUNTER 2020-10-08 19:23 | Outpatient (REF) | payer OTHER, MEDICARE, SELFPAY ==
[2020-10-08 16:20] LABS: INR 1.2 (0.9-1.1); Prothrombin Time 11.6 sec (9.3-11.0)
[2020-10-08 16:37] LABS: Iron 33 ug/dL (50-170); Total Iron Binding Capacity 337 ug/dL (250-450); Transferrin Sat 10 % (15-50)
[2020-10-08 17:12] LABS: ALT 229 U/L (14-59); AST 171 U/L (15-37); Albumin 3.1 g/dL (3.4-5.0); Anion Gap 10.1 mmol/L (3-11); BUN 14 mg/dL (7-18); Bilirubin, Total 7.8 mg/dL (0.2-1.0); CO2 28.9 mmol/L (21.0-32.0); CREATININE 0.7 mg/dL (0.55-1.02); Calcium 10.1 mg/dL (8.5-10.1); Chloride 102 mmol/L (98-107); Glucose 145 mg/dL (74-106); Potassium 3.1 mmol/L (3.5-5.1); Sodium 141 mmol/L (136-145); Total Protein 7.4 g/dL (6.4-8.2)
[2020-10-08 17:16] LABS: Alkaline Phosphatase 1184 U/L (46-116); Ferritin 1485 ng/mL (8-252)
[2020-10-08 17:26] LABS: Amylase 51 U/L (25-115)
[2020-10-08 17:34] LABS: Lipase 1947 U/L (73-393)
[2020-10-10 12:07] LABS: Hepatitis A Antibody IgM Negative (Negative); Hepatitis B Core Antibody Negative (Negative); Hepatitis B surface Ag Negative (Negative); Hepatitis C Ab w Rflx HCV PCR Negative (Negative)
== END 2020-10-08 19:24 | disposition home or self-care (01) ==
LOC: LBN 19:23
PROVIDERS: PCP Family Medicine; Visit Provider Nurse Practitioner Family
DX: R17 Unspecified jaundice (principal); R79.89 Other specified abnormal findings of blood chemistry; K83.1 Obstruction of bile duct; R73.09 Other abnormal glucose
CPT/HCPCS: 80053; 83690; 86704; 86709; 86803; 87340; 82150; 82728; 83540; 83550; 85610

== ENCOUNTER 2020-10-08 19:41 | Observation (INO) | payer OTHER, SELFPAY ==
[2020-10-08 19:47] VITALS: BP 119/67; PULSE 87; RESP 15; TEMP 36.3; O2SAT 97
--- NOTE | 2020-10-08 20:00 | DI.CT_ITS ---
Exam(s) CT CHEST/ABD/PEL W EXAM: CT CHEST/ABD/PEL W CLINICAL HISTORY: elevated lipase, transaminitis TECHNIQUE: CT examination of the chest, abdomen, and pelvis was performed utilizing intravenous inf usion of 100 cc of Omnipaque 350 with biphasic hepatic imaging. Oral contrast was also administered. COMPARISON: CT CT CHEST PE CTA from 06/08/2019 FINDINGS: The lungs show central lobular and subpleural emphysema. Tracheobronchial tree appears intact. No s ignificant pulmonary nodule or consolidation. Small areas of atelectasis noted in lung bases.. No p leural effusion. No pleural based mass. No mediastinal or hilar adenopathy. No axillary or supraclavicular adenopathy. Tracheobronchial elieser e appears intact. No evidence of pulmonary embolic disease. Unremarkable appearance of thoracic aorta and major branch vessels. There is an apparent heterogeneous predominantly low attenuation mass of head of the pancreas measuri ng up to about 4 cm in diameter. There is dilatation of the intra and extrahepatic biliary ducts and the pancreatic duct highly suggestive obstruction of biliary system. Gallbladder is distended other marrufo unremarkable. There is an approximately 1 cm in diameter celiac node. Additional mildly promin ent retroperitoneal and upper abdominal nodes noted suggestive of regional metastasis.. Right renal cyst noted measuring roughly 5 cm in diameter. No other significant findings kidneys or adrenals. Abdominal aorta is borderline enlarged at about 27 millimeters with prominent mural thrombus and wall calcification. Some wall calcification of major visceral branches is noted without gross occlusion or high-grade stenosis. No focal bowel pathology. Appendix is normal. No evidence of diverticulitis. No free fluid identified in the pelvis. No significant abdominal wall hernia. No focal bony lesion identified on scanning of the chest, abdomen, and pelvis. IMPRESSION: Findings highly suggestive of a pancreatic head carcinoma obstructing common bile duct and pancreatic duct. Mild gurdeep enlargement in the upper abdomen and retroperitoneum consistent with regional meta stasis. RADIATION DOSE DELIVERED: 819.66mGy.cm Total DLP 819.66mGy.cm Total DLP RADIATION OPTIMIZATION: All CT scans at this facility use at least one of these dose optimization te chniques: automated exposure control; mA and/or kV adjustment per patient size (includes targeted exa ms where dose is matched to clinical indication); or iterative reconstruction.
--- NOTE | 2020-10-08 20:04 | W.ED.GENAD ---
Discharge Plan Disposition Patient Disposition: [facility] INPATIENT Condition: Poor Discharge Details Chief Complaint: Abd Prob Clinical Impression: Obstructive jaundice, Pancreatic mass Admit Date/Time: 10/08/20 22:51 Admit Provider: Austen Carson Attending Provider: Austen Carson Primary Care Provider: Gay Graham ED Provider: Caryn Palacios Discharge Data Discharge Date/Time-TO BE ENTERED AT DEPARTURE: 10/08/20 23:45 Medical Decision Making Patient is a pleasant 69 year old female presenting today with c/c of abdominal discomfort, jaundice, abnormal lab values. Patient has had abdominal discomfort x 1 month. STates that she has noted the jaundice x 1 week with associated fatigue and 6lb weight loss. Poor appetite, occasional nausea, no vomiting. No change in bladder or blower habits. No previous abdominal surgeries. No fevers/chills. Patient is 50 pack year smoker. No hx of IVDU, travel, is monogamous with . Patient seen by primary care for the same complaint today. At that time, labs were obtained and they contacted the patient advising evaluation in the emergency department. PMH significant for acquired hypothyroidism, COPD and continued smoking. Labs reviewed from earlier work-up. Significant for an INR of 1.2, potassium of 3.1, T bili 7.8, AST 7171, ALT 229, alk phos 1134, albumin 3.1, lipase 1947. On exam, patient appears ill. She is jaundiced and appears very fatigued. Vital signs are stable. Lungs are clear normal cardiac exam. Patient is tender just below to the epigastric area. Negative Lau sign, liver is palpable. No guarding or peritoneal findings on exam. Patient history headache primarily concern for cancerous origin with possible obstructive pathology. The slow progression is less consistent with pancreatitis, acute cholecystitis. Also considered hepatitis, hepatitis panel is pending. Patient does not have high risk factors for hepatitis or pancreatitis. She is not a drinker. We will repeat labs and obtain CT imaging. FINDINGS: Lungs: There is moderate centrilobular and paraseptal emphysema. There is platelike atelectasis in lingula. Lower lobe bronchiectasis noted. Pleural spaces: Unremarkable. No pneumothorax. No pleural effusion. Heart: Unremarkable. No cardiomegaly. No pericardial effusion. Aorta: Unremarkable. No aortic aneurysm. Lymph nodes: Unremarkable. No enlarged lymph nodes. Bones/joints: Unremarkable. No acute fracture. Soft tissues: Unremarkable. IMPRESSION: No acute findings. Moderate emphysema, lower lobe bronchiectasis FINDINGS: Liver: Normal. No mass. Gallbladder and bile ducts: There is moderate dilation of the intrahepatic biliary ducts. The common duct is dilated to 1.6 cm. The gallbladder is distended. Pancreas: There is pancreatic ductal dilatation. There is a 3.9 x 2.9 cm mass in the head/neck of the pancreas (series 4 image 64). The pancreatic mass abuts the SMV, the SMA is spared. Spleen: Normal. No splenomegaly. Adrenal glands: Normal. No mass. Kidneys and ureters: There is a simple cyst in the right kidney. Stomach and bowel: Unremarkable. No obstruction. No mucosal thickening. Appendix: No evidence of appendicitis. Intraperitoneal space: Unremarkable. No free air. No significant fluid collection. Vasculature: The aorta demonstrates severe atherosclerotic calcification and ectasia. Lymph nodes: There is a 0.9 cm celiac axis node (series 4, image 51). Additional prominent upper abdominal and retroperitoneal nodes noted. Urinary bladder: Unremarkable as visualized. Reproductive: Unremarkable as visualized. Bones/joints: Unremarkable. No acute fracture. Soft tissues: Unremarkable. IMPRESSION: Intra and extrahepatic biliary ductal dilatation, pancreatic ductal dilatation and pancreatic head/neck mass 3.9 cm. Findings are concerning for primary pancreatic malignancy. I did discuss these findings with the patient and her at length. Consulted with Dr. Arciniega. She advises that patient will need ERCP which will need to be a down and back procedure. CA929 for tumor markers. She would like to have this completed at this admission. She advises to keep the we should recheck INR in the morning, trend LFTs. She advises to have [facility] call them tomorrow morning at 8 for plan. If concerned for cholangitis develops, recommends that we contact them again. Consulted with Dr. Carson who agrees to admission with plan for patient to have ears he completed at [facility] as soon as possible which should hopefully help with obstructive pathology as well allow for diagnostic evaluation of the pancreatic mass. Discussed this plan with the patient who is in agreement. All of her questions and concerns were addressed. Patient has remained comfortable and stable while here HPI General Mode of arrival: ambulatory. Date/Time Provider Initiated Documentation: 10/08/20 19:46. Limitations to Documentation: no limitations. Information obtained by: patient, family () and RN notes reviewed. History of Present Illness 69 year old F presents to the emergency department with the chief complaint of abdominal discomfort, abnormal labs, described as moderate, with intensity rated at 5. Quality is described as aching, and is localized to the abdomen. Patient reports no radiation. Patient started experiencing this month(s) and it has been intermittent. No relieving factors improve symptom(s), No exacerbating factors reported . Patient notes cough (reports chronic, associates with smoking), loss of appetite, nausea/vomiting (reports some nausea, no vomiting), rash (jaundice x 1 week) and weakness (fatigue); denies chest pain, fever/chills and shortness of breath. Patient did receive the following treatments prior to arrival, none Related Data Home Medications Medication Instructions Recorded Confirmed cholecalciferol (vitamin D3) 1,000 unit PO DAILY 06/08/19 10/08/20 [Vitamin D3] albuterol sulfate [ProAir HFA] 2 puff IH QID PRN #18 gm 06/11/19 10/08/20 levothyroxine 75 mcg PO DAILY #30 cap 06/11/19 10/08/20 atorvastatin 40 mg PO DAILY 10/08/20 10/08/20 pantoprazole 40 mg PO DAILY 10/08/20 10/08/20 Previous Rx's Medication Instructions Recorded albuterol sulfate [ProAir HFA] 2 puff IH QID PRN #18 gm 06/11/19 levothyroxine 75 mcg PO DAILY #30 cap 06/11/19 Allergies Allergy/AdvReac Type Severity Reaction Status Date / Time codeine Allergy Mild Unverified 10/08/20 19:53 General Stated Complaint: Abd Prob GLORIA: 3 Review of Systems Constitutional Constitutional: Reports as per HPI, Denies chills, Reports fatigue, Denies fever(s), Denies headache(s), Reports malaise and Reports weight loss (6lb in one week) ENT Ears, Nose, Mouth, and Throat: Denies headache(s) Cardiovascular Cardiovascular: Reports as per HPI, Denies chest pain and Denies dyspnea Respiratory Respiratory: Reports as per HPI, Reports cough (reports chronic, unchanged, associates with smoking) and Denies dyspnea Gastrointestinal Gastrointestinal: Reports as per HPI Musculoskeletal Musculoskeletal: Reports as per HPI and Reports back pain (reports chronic low back pain) Integumentary/Breasts Skin/Breast: Reports as per HPI and Reports change in pigmentation Neurologic Neurologic: Reports as per HPI and Denies headache(s) Endocrine Endocrine: Reports fatigue PFSH Medical History COPD (chronic obstructive pulmonary disease) Hypothyroidism (acquired) Surgical History H/O section 3 pregnancies and 3 deliveries by Social History Smoking/Tobacco Use Status: Current every day Tobacco Type: cigarettes Tobacco: How many years used: 40 Smoking risk assessment performed?: Yes Alcohol Intake: never Drug use: Never Substance use type: does not use Do you feel safe at home: Yes Do you feel safe in your relationship?: Yes History History 3 Para 3 Hx # Term Pregnancies 3 Multiple births Hx # Pregnancies Ectopic pregnancies AB induced Hx Number of Living Children 3 AB spontaneous Exam Const General: cooperative, comfortable, no acute distress, well developed and ill appearing acutely (jaundiced) Nutritional Appearance: average body habitus and well nourished Orientation: alert and awake HENMT Head: normal to inspection Mouth: oropharynx normal (yellowed on superior posterior oropharynx) and moist mucous membranes Eyes General: appearance normal, both eyes and all related structures (jaundiced) Neck Neck: normal visual inspection Resp Effort & Inspection: normal respiratory effort, able to speak in complete sentences and no respiratory distress Auscultation: clear to auscultation bilaterally, no rales, no rhonchi and no wheezes Cardio Rate: regular rate Rhythm: regular rhythm Heart Sounds: S1 normal and S2 normal GI Inspection: normal to inspection (skin jaundiced) Palpation: soft, no guarding, hepatomegaly, no hernias, no masses, no pulsatile masses, not rigid and tender in the epigastrum; Lau's sign negative and with no rebound tenderness Percussion: normal to percussion Auscultation: normal bowel sounds Back/Spine/Pelvis Back: no CVA tenderness Skin General skin exam: no rashes or lesions noted Trauma: no lacerations or abrasions Neuro General: patient alert and patient awake Cognition: normal cognition Speech: speech normal Gait: normal gait Extrem General: normal to inspection, capillary refill normal, no pedal edema, no calf tenderness, normal gait and other (2+ distal pulses in all extremities) Psych Appearance: grossly normal and well kempt Mental Status: mental status grossly normal Speech and Movement: speech and movement normal Course Vital Signs Vital signs: Vital Signs Temperature 36.3 C L 10/08/20 19:47 Pulse 87 10/08/20 19:47 Respiratory Rate 15 10/08/20 19:47 Blood Pressure 119/67 10/08/20 19:47 Pulse Oximetry 97 10/08/20 19:47 Temperature 36.3 C L 10/08/20 19:47 Temperature Source Temporal Artery Scan 10/08/20 19:47 Pulse 87 10/08/20 19:47 Respiratory Rate 15 10/08/20 19:47 Blood Pressure 119/67 10/08/20 19:47 Blood Pressure Position Supine 10/08/20 19:47 Pulse Oximetry 97 10/08/20 19:47 Oxygen Delivery Method Room Air 10/08/20 19:47 Oxygen Flow Rate 0 10/08/20 19:47 Pain Level 5 10/08/20 19:47
[2020-10-08] MEDS: Omnipaque 350 MG/ML 100 ML BTL IJ (20:24)
[2020-10-08] MEDS: Normal Saline - Diluent 50 ML VIAL IV (20:24)
[2020-10-08 20:28] LABS: Abs Immature Grans 0.03 10^3/uL (0.0-0.06); Absolute Basophil Count 0.05 10^3/uL (0.0-0.2); Absolute Eosinophil Count 0.29 10^3/uL (0.0-0.7); Absolute Lymphocyte Count 1.22 10^3/uL (1.2-3.4); Absolute Monocyte Count 0.63 10^3/uL (0.1-0.8); Absolute Neutrophil Count 5.18 10^3/uL (1.2-6.7); Basophils % 0.7; Eosinophils % 3.9; HCT 38.4 % (36.0-46.0); HGB 12.7 g/dL (11.2-15.7); Immature Grans % 0.4; Lymphocytes % 16.5; MCH 27.7 pg (27.0-33.0); MCHC 33.1 % (32.0-36.0); MCV 83.7 fL (80-95); MPV 12.8 fL (8.0-11.0); Monocytes % 8.5; Nucleated RBC 0 %; Platelet Count 177 10^3/uL (130-400); RBC 4.59 10^6/uL (3.93-5.22); RDW 15.1 % (11.7-14.6); RDW-SD 45.7 fL
[2020-10-08 20:29] LABS: Bilirubin Large (Negative); Blood Small (Negative); Clarity Cloudy (Clear); Glucose 100 mg/dL (Negative); Ketones Trace mg/dL (Negative); Leukocyte Esterase Negative (Negative); Nitrite Negative (Negative); Specific Gravity >= 1.030 (1.005-1.025)
[2020-10-08 20:39] LABS: Bacteria Moderate HPF (Negative); C & S Indicated? No/Sq. Contamination; Casts 3-5 Hyaline LPF (Negative); Crystals Negative HPF (Negative); Epithelial Cells Many HPF (Negative); Mucus Moderate (Negative); Other Cells Few Yeast (Negative)
[2020-10-08] MEDS: POTASSIUM CHLORIDE 20 MEQ/100 ML BAG 50 MEQ IVPB (20:43)
[2020-10-08] MEDS: Normal Saline 1,000 ML 1000 ML IV (20:43)
[2020-10-08] MEDS: Potassium Chloride 20 MEQ TABCR PO (20:43)
[2020-10-08 20:49] LABS: ALT 202 U/L (14-59); AST 148 U/L (15-37); Albumin 2.8 g/dL (3.4-5.0); Alkaline Phosphatase 1087 U/L (46-116); Anion Gap 12.5 mmol/L (3-11); BUN 13 mg/dL (7-18); Bilirubin, Total 7.1 mg/dL (0.2-1.0); CO2 25.5 mmol/L (21.0-32.0); CREATININE 0.8 mg/dL (0.55-1.02); Calcium 9.5 mg/dL (8.5-10.1); Chloride 103 mmol/L (98-107); Glucose 112 mg/dL (74-106); Lipase 1909 U/L (73-393); Magnesium 1.9 mg/dL (1.8-2.4); Potassium 3.1 mmol/L (3.5-5.1); Sodium 141 mmol/L (136-145); Total Protein 7.6 g/dL (6.4-8.2)
--- NOTE | 2020-10-08 21:02 | DI.VRAD_ITS ---
Addendum created by Ovidio White MD on 10/08/2020 9:04:29 PM EDT: Total images: 2169 Initial report created on 10/08/2020 9:02:05 PM EDT: PROCEDURE INFORMATION: Exam: CT Chest With Contrast; Diagnostic Exam date and time: 10/08/2020 8:10 PM Age: 69 years old Clinical indication: Abdominal pain; Localized; Other: Middle; Other: Epigastric/mid abdomen; Patient HX: Per PT: Pain mid abdomen for 1 mo; Elevated lipase, transaminitis; Additional info: Jaundiced TECHNIQUE: Imaging protocol: Diagnostic computed tomography of the chest with contrast. 3D rendering (Not supervised by radiologist): MIP and/or 3D reconstructed images were created by the technologist. Total images: 1014 COMPARISON: CT CHEST PE CTA 08/06/2019 10:31 FINDINGS: Lungs: There is moderate centrilobular and paraseptal emphysema. There is platelike atelectasis in lingula. Lower lobe bronchiectasis noted. Pleural spaces: Unremarkable. No pneumothorax. No pleural effusion. Heart: Unremarkable. No cardiomegaly. No pericardial effusion. Aorta: Unremarkable. No aortic aneurysm. Lymph nodes: Unremarkable. No enlarged lymph nodes. Bones/joints: Unremarkable. No acute fracture. Soft tissues: Unremarkable. IMPRESSION: No acute findings. Moderate emphysema, lower lobe bronchiectasis. PROCEDURE INFORMATION: Exam: CT Abdomen And Pelvis With Contrast Exam date and time: 10/08/2020 8:10 PM Age: 69 years old Clinical indication: Abdominal pain; Localized; Other: Middle; Other: Epigastric/mid abdomen; Patient HX: Per PT: Pain mid abdomen for 1 mo; Elevated lipase, transaminitis; Additional info: Jaundiced TECHNIQUE: Imaging protocol: Computed tomography of the abdomen and pelvis with contrast. 3D rendering (Not supervised by radiologist): MIP and/or 3D reconstructed images were created by the technologist. COMPARISON: CT CHEST PE CTA 08/06/2019 10:31 FINDINGS: Liver: Normal. No mass. Gallbladder and bile ducts: There is moderate dilation of the intrahepatic biliary ducts. The common duct is dilated to 1.6 cm. The gallbladder is distended. Pancreas: There is pancreatic ductal dilatation. There is a 3.9 x 2.9 cm mass in the head/neck of the pancreas (series 4 image 64). The pancreatic mass abuts the SMV, the SMA is spared. Spleen: Normal. No splenomegaly. Adrenal glands: Normal. No mass. Kidneys and ureters: There is a simple cyst in the right kidney. Stomach and bowel: Unremarkable. No obstruction. No mucosal thickening. Appendix: No evidence of appendicitis. Intraperitoneal space: Unremarkable. No free air. No significant fluid collection. Vasculature: The aorta demonstrates severe atherosclerotic calcification and ectasia. Lymph nodes: There is a 0.9 cm celiac axis node (series 4, image 51). Additional prominent upper abdominal and retroperitoneal nodes noted. Urinary bladder: Unremarkable as visualized. Reproductive: Unremarkable as visualized. Bones/joints: Unremarkable. No acute fracture. Soft tissues: Unremarkable. IMPRESSION: Intra and extrahepatic biliary ductal dilatation, pancreatic ductal dilatation and pancreatic head/neck mass 3.9 cm. Findings are concerning for primary pancreatic malignancy. Dictated and Authenticated by: Ovidio White MD. Ordering:IVONNE Rubin MD
[2020-10-08 21:36] VITALS: BP 118/63; PULSE 73; O2SAT 96
[2020-10-08 22:01] VITALS: BP 129/70; PULSE 75; O2SAT 96
[2020-10-08] MEDS: Nicotine 21 MG/24 HR PATCH TD (22:37)
--- NOTE | 2020-10-08 22:39 | HPE_ITS ---
Date of service: 10/08/20 Time of Service: 22:39 Assessment and Plan Assessment and plan (1) Obstructive jaundice: Status: Acute Assessment and plan: Obstructive jaundice, very likely pancreatic CA. I reviewed likely diagnosis with patient, though emphasizing that we will need tissue diagnosis. She is understandably disturbed but I emphasize that we will be here to support her through the process. Will have NPO with planned transfer for ERCP in AM. History of Present Illness History of Present Illness Chief Complaint: jaundice Narrative: 69 female smoker here with one month of epigastric pain, early satiety, 6 pound eight loss and few days of jaundice. In ER findings of note for bilirubin 7.1, ALT 202, Alk phos 1087, lipase [address] showing mass in head of pancreas along with hepatobiliary ductal dilatation. Potassium 3.1 also noted. Patient given 20 KCl both PO and IV. Case reviewed with GI at [facility] who accepts for ERCP in AM. Review of Systems All systems reviewed & are unremarkable except as noted in HPI and below PFSH Medical History COPD (chronic obstructive pulmonary disease) Hypothyroidism (acquired) Surgical History H/O section 3 pregnancies and 3 deliveries by Social History Smoking/Tobacco Use Status: Current every day Tobacco Type: cigarettes Tobacco: How many years used: 40 Smoking risk assessment performed?: Yes Alcohol Intake: never Drug use: Never Substance use type: does not use Do you feel safe at home: Yes Do you feel safe in your relationship?: Yes History History 3 Para 3 Hx # Term Pregnancies 3 Multiple births Hx # Pregnancies Ectopic pregnancies AB induced Hx Number of Living Children 3 AB spontaneous Meds Allergies and Home Medications Allergies Allergy/AdvReac Type Severity Reaction Status Date / Time codeine Allergy Mild Unverified 10/08/20 19:53 Home Medications Medication Instructions Recorded Confirmed Type cholecalciferol (vitamin D3) 1,000 unit PO DAILY 06/08/19 10/08/20 History [Vitamin D3] albuterol sulfate [ProAir HFA] 2 puff IH QID PRN #18 gm 06/11/19 10/08/20 Rx levothyroxine 75 mcg PO DAILY #30 cap 06/11/19 10/08/20 Rx atorvastatin 40 mg PO DAILY 10/08/20 10/08/20 History pantoprazole 40 mg PO DAILY 10/08/20 10/08/20 History Exam Narrative Exam Narrative: 129/70, 75, 36.3, 15, 96% RA. HEENT scleral icterus; neck supple; lungs clear; heart RRR w/o MRG; abdomen soft, mild epigastric tenderness; extremities w/o edema; neuro Ox3, lucid, moves all 4s Results Labs Result diagrams: 10/08/20 20:08 10/08/20 20:08 Labs: Laboratory Results - last 24 hr 10/08/20 10/08/20 10/08/20 20:08 20:08 20:09 WBC 7.40 RBC 4.59 Hgb 12.7 Hct 38.4 MCV 83.7 MCH 27.7 MCHC 33.1 RDW 15.1 H Plt Count 177 MPV 12.8 H Immature Gran % 0.4 Neutrophils % 70.0 Lymphocytes % 16.5 Monocytes % 8.5 Eosinophils % 3.9 Basophils % 0.7 Nucleated RBC % 0 Absolute Neutrophils 5.18 Absolute Lymphocytes 1.22 Absolute Monocytes 0.63 Absolute Eosinophils 0.29 Absolute Basophils 0.05 Sodium 141 Potassium 3.1 L Chloride 103 Carbon Dioxide 25.5 Anion Gap 12.5 H BUN 13 Creatinine 0.8 Estimated GFR/1.73 m2 >= 60.00 Glucose 112 H Calcium 9.5 Magnesium 1.9 Total Bilirubin 7.1 H AST 148 H ALT 202 H Alkaline Phosphatase 1087 H Total Protein 7.6 Albumin 2.8 L Lipase 1909 H Urine Color Dark Yellow Urine Clarity Cloudy Urine pH 6.0 Ur Specific [place] >= 1.030 H Urine Protein 100 H Urine Ketones Trace H Urine Blood Small H Urine Nitrite Negative Urine Bilirubin Large H Urine Urobilinogen 1.0 H Ur Leukocyte Esterase Negative Urine RBC 5-10 H Urine WBC 3-5 Ur Epithelial Cells Many Urine Crystals Negative Urine Bacteria Moderate Urine Casts 3-5 Hyaline Urine Mucus Moderate Urine Other Few Yeast Ur Culture Indicated? No/Sq. Contamination Urine Glucose 100 Last Vital Signs Temp 36.3 C L 10/08/20 19:47 Pulse 75 10/08/20 22:01 Resp 15 10/08/20 19:47 BP 129/70 10/08/20 22:01 Pulse Ox 96 10/08/20 22:01
[2020-10-08 23:43] LABS: Source Nasal/Nares
[2020-10-09 00:34] LABS: COVID-19 PCR Negative (Negative)
[2020-10-09] MEDS: POTASSIUM CHLORIDE/0.9% NACL 1,000 ML 100 MEQ IV (01:13)
[2020-10-09 01:14] VITALS: BP 109/70; PULSE 78; RESP 16; TEMP 37; O2SAT 94
[2020-10-09] MEDS: Levothyroxine 75 MCG TAB PO (05:54)
[2020-10-09 06:46] LABS: Anion Gap 10.7 mmol/L (3-11); BUN 8 mg/dL (7-18); CO2 24.3 mmol/L (21.0-32.0); CREATININE 0.5 mg/dL (0.55-1.02); Chloride 106 mmol/L (98-107); Glucose 93 mg/dL (74-106); Potassium 3.8 mmol/L (3.5-5.1); Sodium 141 mmol/L (136-145)
[2020-10-09 07:41] VITALS: BP 105/66; PULSE 67; RESP 18; TEMP 36.5; O2SAT 97
[2020-10-09] MEDS: ACETAMINOPHEN 1,000 MG/100 ML BTL 400 MG IVPB ×2 (09:25→17:51)
--- NOTE | 2020-10-09 11:58 | PDOC.CMIN ---
- If Service Date Differs Date of service: 10/09/20 Time of Service: 11:58 Care Management Initial Assess REASON FOR HOSPITALIZATION:: Obstructive Jaundice PAST MEDICAL HISTORY/PAST SURGICAL HISTORY:: Medical History. COPD (chronic obstructive pulmonary disease). Hypothyroidism (acquired). Surgical History. H/O section. 3 pregnancies and 3 deliveries by PREVIOUS FUNCTIONAL STATUS/SOCIAL/FAMILY SUPPORTS:: Linh lives in [facility] with her , Ion, and their oldest son. They have three sons, two of which live in [place], [place]. 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 She is independent at baseline. CURRENT FUNCTIONAL STATUS:: Linh was sitting up in bed when CM met with her. She stated that she understands that she will be going [place] [facility] [place]. This will be a down and back visit. Linh inquired about her transporting her down, but this will not be possible, as she would lose this appointment time. She understands and is agreeable to remain at [facility]. CM will continue to follow. ADVANCE DIRECTIVES:: None on file. CM will offer forms. Has patient been provided with info about the portal/API?: Yes Did the patient sign up for the portal?: No CODE STATUS:: Full Code INSURANCE COVERAGE / FINANCIAL ISSUES:: MCR/ Commercial MCR replacement- [facility] CURRENT HOME/COMMUNITY SERVICES/EQUIPMENT:: No current services or equipment PRIMARY CARE PHYSICIAN:: Gay Graham POTENTIAL DISCHARGE NEEDS:: Follow up appointments PATIENT/FAMILY EDUCATION NEEDS:: Review discharge instructions, discussion of self care needs including ask me three. ANTICIPATED BARRIERS TO DISCHARGE:: None identified. TRANSPORTATION:: Via private vehicle by her PLAN:: Linh will go down and back to [facility] [place] for an ERCP. Anticipate she will return home when medically cleared. Her will drive her home via private vehicle when ready. She will follow up with her PCP and discharge plan of care. CM will continue to follow.
--- NOTE | 2020-10-09 13:55 | PGE_ITS ---
Date of Service Date of service: 10/09/20 Time of Service: 08:19 Assessment and Plan Assessment and plan (1) Obstructive jaundice: Status: Acute Assessment and plan: Imaging shows mass of pancreatic head. Total bili improved from 7.8 to 7.1 Planning to send to [facility] tomorrow for ERCP Clear liquids now; NPO after MN Pain has improved. No current nausea/vomiting. Subjective Subjective Patient reports: no new complaints, feels better and afebrile; denies diarrhea, nausea and vomiting Interval history since last seen: She is NPO for planned down and back to [facility] for an ERCP Exam Const General: cooperative and no acute distress Nutritional Appearance: average body habitus Orientation: alert and oriented x3 Eyes Sclera: scleral abnormality (icteric) Pupils: PERRL Resp Effort & Inspection: normal respiratory effort Auscultation: clear to auscultation bilaterally Cardio Rate: regular rate Rhythm: regular rhythm GI Palpation: tender (Mild w/o guarding) in the epigastrum and in the LLQ; with no rebound tenderness Skin General skin exam: jaundice Neuro General: no focal motor deficits Cognition: normal cognition Speech: speech normal Extrem General: no pedal edema and no calf tenderness Objective Last Vital Signs Temp 36.5 C 10/09/20 07:41 Pulse 67 10/09/20 07:41 Resp 18 10/09/20 07:41 BP 105/66 10/09/20 07:41 Pulse Ox 97 10/09/20 07:41 Laboratory Results - last 24 hr 10/08/20 10/08/20 10/08/20 20:08 20:08 20:09 WBC 7.40 RBC 4.59 Hgb 12.7 Hct 38.4 MCV 83.7 MCH 27.7 MCHC 33.1 RDW 15.1 H Plt Count 177 MPV 12.8 H Immature Gran % 0.4 Neutrophils % 70.0 Lymphocytes % 16.5 Monocytes % 8.5 Eosinophils % 3.9 Basophils % 0.7 Nucleated RBC % 0 Absolute Neutrophils 5.18 Absolute Lymphocytes 1.22 Absolute Monocytes 0.63 Absolute Eosinophils 0.29 Absolute Basophils 0.05 Sodium 141 Potassium 3.1 L Chloride 103 Carbon Dioxide 25.5 Anion Gap 12.5 H BUN 13 Creatinine 0.8 Estimated GFR/1.73 m2 >= 60.00 Glucose 112 H Calcium 9.5 Magnesium 1.9 Total Bilirubin 7.1 H AST 148 H ALT 202 H Alkaline Phosphatase 1087 H Total Protein 7.6 Albumin 2.8 L Lipase 1909 H Urine Color Dark Yellow Urine Clarity Cloudy Urine pH 6.0 Ur Specific [place] >= 1.030 H Urine Protein 100 H Urine Ketones Trace H Urine Blood Small H Urine Nitrite Negative Urine Bilirubin Large H Urine Urobilinogen 1.0 H Ur Leukocyte Esterase Negative Urine RBC 5-10 H Urine WBC 3-5 Ur Epithelial Cells Many Urine Crystals Negative Urine Bacteria Moderate Urine Casts 3-5 Hyaline Urine Mucus Moderate Urine Other Few Yeast Ur Culture Indicated? No/Sq. Contamination Urine Glucose 100 COVID-19 Source SARS-CoV-2 (PCR) 10/08/20 10/09/20 23:29 06:05 WBC RBC Hgb Hct MCV MCH MCHC RDW Plt Count MPV Immature Gran % Neutrophils % Lymphocytes % Monocytes % Eosinophils % Basophils % Nucleated RBC % Absolute Neutrophils Absolute Lymphocytes Absolute Monocytes Absolute Eosinophils Absolute Basophils Sodium 141 Potassium 3.8 D Chloride 106 Carbon Dioxide 24.3 Anion Gap 10.7 BUN 8 Creatinine 0.5 L D Estimated GFR/1.73 m2 >= 60.00 Glucose 93 Calcium 9.0 Magnesium Total Bilirubin AST ALT Alkaline Phosphatase Total Protein Albumin Lipase Urine Color Urine Clarity Urine pH Ur Specific [place] Urine Protein Urine Ketones Urine Blood Urine Nitrite Urine Bilirubin Urine Urobilinogen Ur Leukocyte Esterase Urine RBC Urine WBC Ur Epithelial Cells Urine Crystals Urine Bacteria Urine Casts Urine Mucus Urine Other Ur Culture Indicated? Urine Glucose COVID-19 Source Nasal/Nares SARS-CoV-2 (PCR) Negative
[2020-10-09 15:33] VITALS: BP 112/71; PULSE 63; RESP 17; TEMP 36.9; O2SAT 95
[2020-10-09] MEDS: Nicotine 21 MG/24 HR PATCH TD (17:51)
[2020-10-09] MEDS: Normal Saline Flush 10 ML SYR IVP (17:51)
[2020-10-10] MEDS: Normal Saline 1,000 ML 80 ML IV ×2 (00:20→23:53)
[2020-10-10 00:28] VITALS: BP 120/65; PULSE 64; RESP 18; TEMP 36.6; O2SAT 97
[2020-10-10] MEDS: ACETAMINOPHEN 1,000 MG/100 ML BTL 400 MG IVPB ×2 (01:56→18:48)
[2020-10-10 07:12] LABS: ALT 184 U/L (14-59); AST 139 U/L (15-37); Albumin 2.5 g/dL (3.4-5.0); Alkaline Phosphatase 1000 U/L (46-116); Anion Gap 12.1 mmol/L (3-11); BUN 6 mg/dL (7-18); Bilirubin, Total 7.2 mg/dL (0.2-1.0); CO2 21.9 mmol/L (21.0-32.0); CREATININE 0.7 mg/dL (0.55-1.02); Calcium 9.4 mg/dL (8.5-10.1); Chloride 107 mmol/L (98-107); Glucose 92 mg/dL (74-106); Potassium 3.5 mmol/L (3.5-5.1); Sodium 141 mmol/L (136-145); Total Protein 6.9 g/dL (6.4-8.2)
[2020-10-10 07:13] VITALS: BP 116/70; PULSE 68; RESP 17; TEMP 36.6; O2SAT 95
[2020-10-10] MEDS: MORPHine 4 MG/ML SYR IVP (09:27)
[2020-10-10] MEDS: Normal Saline Flush 10 ML SYR IVP ×3 (09:28→23:53)
--- NOTE | 2020-10-10 13:09 | CMPROGNOTE_ITS ---
- If Service Date Differs Date of service: 10/10/20 Time of Service: 13:09 Care Management Progress Note S/O: Linh went [place] [facility] [place]. If [facility] [place] not [place] her for admission, she may discharge later today when she returns from [facility]. She transported via [facility]. Per report, images on admission showed a mass of her pancreatic head. She may require further outpatient work up for this, which will be determined by the results of the ERCP. CM will continue to follow. A: Linh is a 69 year old female admitted to [facility] on 10/08/20 for obstructive jaundice. P: Linh went [place] [facility] [place] today via [facility]. She will either be accepted in transfer by [facility], or return this afternoon after her procedure. She will return home once she is medically cleared by . Her will transport her home via private vehicle. She will follow up with her PCP and discharge plan of care. CM will continue to follow.
--- NOTE | 2020-10-10 13:09 | PDOC.CMPRO ---
- If Service Date Differs Date of service: 10/10/20 Time of Service: 13:09 Care Management Progress Note S/O: Linh went to [facility] for an ERCP today. If [facility] does not accept her for admission, she may discharge later today when she returns from [facility]. She transported via [facility]. Per report, images on admission showed a mass of her pancreatic head. She may require further outpatient work up for this, which will be determined by the results of the ERCP. CM will continue to follow. A: Linh is a 69 year old female admitted to [facility] on 10/08/20 for obstructive jaundice. P: Linh went to [facility] for an ERCP today via [facility]. She will either be accepted in transfer by [facility], or return this afternoon after her procedure. She will return home once she is medically cleared by . Her will transport her home via private vehicle. She will follow up with her PCP and discharge plan of care. CM will continue to follow.
--- NOTE | 2020-10-10 17:12 | W.PM.PROGNOT ---
Date of Service Date of service: 10/10/20 Time of Service: 17:13 Assessment and Plan Assessment and plan (1) Pancreatic mass: Status: Acute Assessment and plan: s/p ERCP Report from [facility] regarding the procedure lorena be evaluated. She will have arrangments made for f/u with appropriate service at [facility] (2) Obstructive jaundice: Status: Acute Assessment and plan: Bili in the AM Clear liquids and advance as tolerated. PRN morphine for pain and Zofran for any N/V (3) Tobacco abuse: Status: Acute Assessment and plan: She has been on nicoderm patch and would like to try a nicotrol inhaler. Encourage cessation Subjective Subjective Patient reports: afebrile; denies shortness of breath Interval history since last seen: s/p ERCP at [facility] today. Received IV Fentanyl post procedure. Some epigastric and LUQ discomfort. No N/V Wants to have clear liquids. Exam Const General: cooperative and no acute distress Nutritional Appearance: average body habitus Orientation: alert (mildly drowsy) Eyes Sclera: scleral abnormality (mild icterus) Pupils: PERRL Resp Effort & Inspection: normal respiratory effort Auscultation: clear to auscultation bilaterally and diminished lung sounds Cardio Rate: regular rate Rhythm: regular rhythm Heart Sounds: S1 normal and S2 normal GI Palpation: soft and tender (mild epigastric.) Auscultation: normal bowel sounds Skin General skin exam: no rashes or lesions noted and jaundice Extrem General: no pedal edema and no calf tenderness Objective Last Vital Signs Temp 36.6 C 10/10/20 07:13 Pulse 68 10/10/20 07:13 Resp 17 10/10/20 07:13 BP 116/70 10/10/20 07:13 Pulse Ox 95 10/10/20 07:13 Laboratory Results - last 24 hr 10/10/20 06:38 Sodium 141 Potassium 3.5 Chloride 107 Carbon Dioxide 21.9 Anion Gap 12.1 H BUN 6 L Creatinine 0.7 Estimated GFR/1.73 m2 >= 60.00 Glucose 92 Calcium 9.4 Total Bilirubin 7.2 H AST 139 H ALT 184 H Alkaline Phosphatase 1000 H Total Protein 6.9 Albumin 2.5 L
[2020-10-10 19:45] VITALS: BP 121/70; PULSE 76; RESP 17; TEMP 37.4; O2SAT 93
[2020-10-10 23:20] VITALS: BP 121/74; PULSE 73; RESP 16; TEMP 36.7; O2SAT 93
[2020-10-11] MEDS: Levothyroxine 75 MCG TAB PO (06:22)
[2020-10-11 06:30] VITALS: TEMP 37.5
[2020-10-11 06:50] VITALS: BP 145/77; PULSE 58; RESP 20; TEMP 36.8; O2SAT 96
[2020-10-11] MEDS: ACETAMINOPHEN 1,000 MG/100 ML BTL 400 MG IVPB (08:38)
[2020-10-11] MEDS: Normal Saline 1,000 ML 80 ML IV (12:56)
--- NOTE | 2020-10-11 13:08 | DSE_ITS ---
Date of service: 10/11/20 Time of Service: 13:08 DS: Diagnosis Discharge Diagnosis (1) Pancreatic mass: Status: Acute (2) Obstructive jaundice: Status: Acute (3) Tobacco abuse: Status: Acute Discharge Plan Disposition Patient Disposition: HOME Condition: Improving Discharge Details Reason For Visit: Obstructive Jaundice Admit Date/Time: 10/08/20 22:51 Admit Provider: Austen Carson Attending Provider: Austen Carson Primary Care Provider: Gay Graham [facility] Hospital Course: This is a 69 female smoker here with one month of epigastric pain, early satiety, 6 pound eight loss and few days of jaundice. In ER findings of note for bilirubin 7.1, ALT 202, Alk phos 1087, lipase [address] showing mass in head of pancreas along with hepatobiliary ductal dilatation. Potassium 3.1 also noted. Patient given 20 KCl both PO and IV. Case reviewed with GI at [facility] who accepted her for ERCP; placed her on the schedule for 10/10/2020. Her K was corrected. She tolerated clear liquids prior to the procedure and used only several doses of IV morphine for pain control. She had no emesis, fever/chills. ERCP performed and she returned and was able to tolerate clear liquids. On the day of discharge she ate regular food w/o N/V/abd pain. It was suggested she eat a low fat diet initially and advance to her regular diet if tolerated. [facility] will f/u with the biopsy results that were obtained. Tramadol prn for pain and Zofran prn for N/V. If she develops worsening pain or fever, she should return. F/U with PCP in 1-2 weeks. Home Meds and New Rx's Prescriptions: New tramadol 50 mg Tablet 50 mg PO Q6H PRN PRNQty: 15 RF: 0 ondansetron HCl [Zofran] 4 mg tablet 4 mg PO Q6H PRNQty: 7 RF: 0 Continued cholecalciferol (vitamin D3) [Vitamin D3] 25 mcg (1,000 unit) Tablet 1,000 unit PO DAILY RF: 0 albuterol sulfate [ProAir HFA] 90 mcg/actuation HFA aerosol inhaler 2 puff IH QID PRN (Reason: shortness of breath or wheezing) Qty: 18 RF: 0 levothyroxine 75 mcg capsule 75 mcg PO DAILY Qty: 30 RF: 0 atorvastatin 40 mg tablet 40 mg PO DAILY RF: 0 pantoprazole 40 mg tablet,delayed release (DR/EC) 40 mg PO DAILY RF: 0 Discharge Instructions Instructions: Pancreatitis (DC) Activity:: Activity as Tolerated Equipment/Supplies:: No Equipment Needed Diet:: low fat Discharge Orders Discharge Orders: Discharge Order (Routine); Ordered 10/11/20 Ordered By: Jordon Zhang DS: Summary Time Spent with Patient providing and/or coordinating discharge services: Less than 30 minutes Status at Discharge Functional status at discharge: independent ambulation Overall status at discharge: patient is progressing back to baseline Mental Status: mental status grossly normal Speech and Movement: speech and movement normal Mood: congruent mood Affect: normal affect Exam Const General: cooperative and no acute distress Nutritional Appearance: average body habitus Orientation: alert and oriented x3 Eyes Sclera: scleral abnormality (mild icterus) Resp Effort & Inspection: normal respiratory effort Auscultation: clear to auscultation bilaterally Cardio Rate: regular rate Rhythm: regular rhythm Heart Sounds: S1 normal and S2 normal GI Palpation: soft and nontender Skin General skin exam: no rashes or lesions noted and jaundice (mild) Extrem General: no pedal edema and no calf tenderness Psych Mental Status: mental status grossly normal Speech and Movement: speech and movement normal Mood: congruent mood Affect: normal affect DS: Data Vitals/I&O Vitals and I&O: Vital Signs Temperature 36.8 C 10/11/20 06:50 Temperature Source Skin 10/11/20 06:50 Pulse 58 L 10/11/20 06:50 Pulse Rhythm Regular 10/11/20 10:07 Respiratory Rate 20 10/11/20 06:50 Respiratory Effort 10/11/20 10:07 Respiratory Depth Normal 10/11/20 10:07 Respiratory Pattern Normal 10/11/20 10:07 Blood Pressure 145/77 H 10/11/20 06:50 Blood Pressure Mean 84 10/08/20 22:01 Blood Pressure Position Supine 10/08/20 19:47 Pulse Oximetry 96 10/11/20 06:50 Oxygen Delivery Method Room Air 10/11/20 06:50 Oxygen Flow Rate 0 10/11/20 06:50 Pain Level 4 10/11/20 08:38 Intake & Output 10/10/20 10/11/20 10/11/20 23:59 11:59 23:59 Intake Total 1920 / 2120 720 / 1720 1000 / 1720 Output Total 750 / 1900 700 / 700 Balance 1170 / 220 20 / 1020 1000 / 1020 Intake: IV 1110 / 1310 1000 / 1000 Oral 810 / 810 720 / 720 Output: Urine 750 / 1900 700 / 700 Other: Urine Color [place] Linh Urine Appearance Clear Clear Urine Odor Normal Normal Comment Tea colored urine. Tea colored urine. Voiding Methods Toilet Toilet [facility] Medical History COPD (chronic obstructive pulmonary disease) Hypothyroidism (acquired) Surgical History H/O section 3 pregnancies and 3 deliveries by Social History Smoking/Tobacco Use Status: Current every day Tobacco Type: cigarettes Tobacco: How many years used: 40 Smoking risk assessment performed?: Yes Alcohol Intake: never Drug use: Never Substance use type: does not use Do you feel safe at home: Yes Do you feel safe in your relationship?: Yes History History 3 Para 3 Hx # Term Pregnancies 3 Multiple births Hx # Pregnancies Ectopic pregnancies AB induced Hx Number of Living Children 3 AB spontaneous
--- NOTE | 2020-10-11 15:19 | PDOC.CMDIS ---
- If Service Date Differs Date of service: 10/11/20 Time of Service: 15:19 LACE Index Scoring Tool - Questions: Length of Stay (in days): 3 Acuity (Admit via E.D.?): Yes E.D. Visits: 1 - Answers: Total Score: 7 Risk of Readmission: Low Risk Care Management Discharge Reason for Hospitalization: Obstructive Jaundice Discharge Plan: Linh will return home today with no services. Her will drive her home via private vehicle. She will follow up with [facility], her PCP, and her discharge plan of care. She is happy to be going home. Patient/Family Education Needs: Review discharge instructions regarding activity levels and medications, discussion of self care needs including ask me three.
== END 2020-10-11 15:40 | disposition home or self-care (01) ==
LOC: ER 23:01 → MS 10-09 00:03
PROVIDERS: Family Medicine; Admitting Provider General Practice; Emergency Provider Physician Assistant; PCP Family Medicine; Visit Provider General Practice
DX: K86.89 Other specified diseases of pancreas; K83.1 Obstruction of bile duct; F17.210 Nicotine dependence, cigarettes, uncomplicated; J44.9 Chronic obstructive pulmonary disease, unspecified; E03.9 Hypothyroidism, unspecified; Z20.822 Contact with and (suspected) exposure to COVID-19
CPT/HCPCS: 36415; 74177; 80048; 80053; 83690; 87635; 96361; 96365; 96366; 99285; 71260; 81003; 81015; 83735; 85025; 99217; 99219; 99225; 99232; G0378; J0131; J2270; J3480; J3490

== ENCOUNTER 2020-11-16 11:49 | Outpatient (CLI) | payer OTHER, SELFPAY ==
[2020-11-16 12:14] LABS: Abs Immature Grans 0.12 10^3/uL (0.0-0.06); Absolute Basophil Count 0.06 10^3/uL (0.0-0.2); Absolute Eosinophil Count 0.34 10^3/uL (0.0-0.7); Absolute Lymphocyte Count 1.42 10^3/uL (1.2-3.4); Absolute Monocyte Count 0.59 10^3/uL (0.1-0.8); Absolute Neutrophil Count 6.09 10^3/uL (1.2-6.7); Basophils % 0.7; Eosinophils % 3.9; HGB 13.6 g/dL (11.2-15.7); Immature Grans % 1.4; Lymphocytes % 16.5; MCH 27.1 pg (27.0-33.0); MCHC 32.4 % (32.0-36.0); MCV 83.8 fL (80-95); Monocytes % 6.8; Neutrophils % 70.7; Nucleated RBC 0 %; Platelet Count 229 10^3/uL (130-400); RBC 5.01 10^6/uL (3.93-5.22); RDW 14.4 % (11.7-14.6); WBC 8.62 10^3/uL (4.4-10.8)
[2020-11-16 12:27] LABS: ALT 57 U/L (14-59); AST 32 U/L (15-37); Albumin 3.5 g/dL (3.4-5.0); Alkaline Phosphatase 237 U/L (46-116); Anion Gap 7.7 mmol/L (3-11); BUN 14 mg/dL (7-18); Bilirubin, Total 0.5 mg/dL (0.2-1.0); CO2 30.3 mmol/L (21.0-32.0); CREATININE 0.7 mg/dL (0.55-1.02); Calcium 10.2 mg/dL (8.5-10.1); Chloride 99 mmol/L (98-107); Glucose 178 mg/dL (74-106); Sodium 137 mmol/L (136-145); Total Protein 7.9 g/dL (6.4-8.2)
[2020-11-19 15:18] LABS: CA 19-9 18431 U/mL (<35)
== END 2020-11-16 11:50 | disposition home or self-care (01) ==
PROVIDERS: PCP Family Medicine; Visit Provider Internal Medicine Hematology & Oncology
DX: C25.9 Malignant neoplasm of pancreas, unspecified (principal); C78.7 Secondary malignant neoplasm of liver and intrahepatic bile duct
CPT/HCPCS: 36415; 80053; 85025; 86301

== ENCOUNTER 2020-12-07 03:48 | Outpatient (RCR) | payer OTHER, SELFPAY ==
[2020-11-23] MEDS: Normal Saline Flush 10 ML SYR IVP (08:00)
[2020-11-23 08:14] LABS: Abs Immature Grans 0.08 10^3/uL (0.0-0.06); Absolute Basophil Count 0.07 10^3/uL (0.0-0.2); Absolute Eosinophil Count 0.49 10^3/uL (0.0-0.7); Absolute Lymphocyte Count 1.48 10^3/uL (1.2-3.4); Absolute Monocyte Count 0.71 10^3/uL (0.1-0.8); Absolute Neutrophil Count 6.94 10^3/uL (1.2-6.7); Basophils % 0.7; HCT 41.4 % (36.0-46.0); HGB 13.4 g/dL (11.2-15.7); Immature Grans % 0.8; Lymphocytes % 15.1; MCH 27.1 pg (27.0-33.0); MCHC 32.4 % (32.0-36.0); MCV 83.6 fL (80-95); MPV 11.3 fL (8.0-11.0); Monocytes % 7.3; Neutrophils % 71.1; Nucleated RBC 0 %; Platelet Count 221 10^3/uL (130-400); RBC 4.95 10^6/uL (3.93-5.22); RDW 14.5 % (11.7-14.6); RDW-SD 43.8 fL; WBC 9.77 10^3/uL (4.4-10.8)
[2020-11-23 08:36] LABS: ALT 61 U/L (14-59); AST 37 U/L (15-37); Albumin 3.5 g/dL (3.4-5.0); Alkaline Phosphatase 238 U/L (46-116); Anion Gap 10.2 mmol/L (3-11); BUN 14 mg/dL (7-18); Bilirubin, Total 0.5 mg/dL (0.2-1.0); CO2 26.8 mmol/L (21.0-32.0); CREATININE 0.8 mg/dL (0.55-1.02); Calcium 9.6 mg/dL (8.5-10.1); Chloride 98 mmol/L (98-107); Glucose 140 mg/dL (74-106); Potassium 3.9 mmol/L (3.5-5.1); Sodium 135 mmol/L (136-145); Total Protein 7.7 g/dL (6.4-8.2)
[2020-11-30 09:53] LABS: Abs Immature Grans 0.03 10^3/uL (0.0-0.06); Absolute Basophil Count 0.02 10^3/uL (0.0-0.2); Absolute Eosinophil Count 0.16 10^3/uL (0.0-0.7); Absolute Lymphocyte Count 1.22 10^3/uL (1.2-3.4); Absolute Monocyte Count 0.22 10^3/uL (0.1-0.8); Absolute Neutrophil Count 1.76 10^3/uL (1.2-6.7); Basophils % 0.6; Eosinophils % 4.7; HCT 35.4 % (36.0-46.0); HGB 11.5 g/dL (11.2-15.7); Immature Grans % 0.9; Lymphocytes % 35.8; MCH 27.3 pg (27.0-33.0); MCHC 32.5 % (32.0-36.0); MCV 84.1 fL (80-95); MPV 10.6 fL (8.0-11.0); Monocytes % 6.5; Neutrophils % 51.5; Nucleated RBC 0 %; Platelet Count 113 10^3/uL (130-400); RBC 4.21 10^6/uL (3.93-5.22); RDW 14.2 % (11.7-14.6); RDW-SD 43.4 fL; WBC 3.41 10^3/uL (4.4-10.8)
[2020-11-30 10:06] LABS: ALT 60 U/L (14-59); AST 33 U/L (15-37); Albumin 3.2 g/dL (3.4-5.0); Alkaline Phosphatase 218 U/L (46-116); Anion Gap 7.4 mmol/L (3-11); BUN 13 mg/dL (7-18); Bilirubin, Total 0.4 mg/dL (0.2-1.0); CO2 29.6 mmol/L (21.0-32.0); CREATININE 0.7 mg/dL (0.55-1.02); Calcium 9.3 mg/dL (8.5-10.1); Chloride 100 mmol/L (98-107); Glucose 200 mg/dL (74-106); Potassium 3.9 mmol/L (3.5-5.1); Sodium 137 mmol/L (136-145); Total Protein 7.1 g/dL (6.4-8.2)
[2020-11-30] MEDS: Normal Saline Flush 10 ML SYR IVP (11:17)
[2020-12-07] MEDS: Normal Saline Flush 10 ML SYR IVP (10:09)
[2020-12-07 10:19] LABS: Abs Immature Grans 0.14 10^3/uL (0.0-0.06); Absolute Basophil Count 0.02 10^3/uL (0.0-0.2); Absolute Eosinophil Count 0.12 10^3/uL (0.0-0.7); Absolute Lymphocyte Count 1.18 10^3/uL (1.2-3.4); Absolute Monocyte Count 0.31 10^3/uL (0.1-0.8); Absolute Neutrophil Count 2.54 10^3/uL (1.2-6.7); Basophils % 0.5; Eosinophils % 2.8; HCT 34.1 % (36.0-46.0); Immature Grans % 3.2; Lymphocytes % 27.4; MCH 27.2 pg (27.0-33.0); MCHC 32.3 % (32.0-36.0); MCV 84.4 fL (80-95); MPV 10.3 fL (8.0-11.0); Monocytes % 7.2; Neutrophils % 58.9; Nucleated RBC 0 %; RBC 4.04 10^6/uL (3.93-5.22); RDW 15.1 % (11.7-14.6); RDW-SD 45.4 fL; WBC 4.31 10^3/uL (4.4-10.8)
[2020-12-07 10:30] LABS: ALT 48 U/L (14-59); AST 30 U/L (15-37); Albumin 3.2 g/dL (3.4-5.0); Alkaline Phosphatase 202 U/L (46-116); Anion Gap 9.2 mmol/L (3-11); BUN 11 mg/dL (7-18); Bilirubin, Total 0.2 mg/dL (0.2-1.0); CO2 27.8 mmol/L (21.0-32.0); CREATININE 0.6 mg/dL (0.55-1.02); Calcium 9.7 mg/dL (8.5-10.1); Chloride 101 mmol/L (98-107); Glucose 106 mg/dL (74-106); Potassium 4.1 mmol/L (3.5-5.1); Sodium 138 mmol/L (136-145); Total Protein 7.1 g/dL (6.4-8.2)
[2020-12-07 10:43] LABS: Platelet Count 78 10^3/uL (130-400)
[2020-12-07 10:44] LABS: Diff Comment PLT Morph Reviewed; Polychromasia Present
== END 2020-12-11 23:59 | disposition home or self-care (01) ==
LOC: INF 03:48
PROVIDERS: PCP Family Medicine; Visit Provider Internal Medicine Hematology & Oncology
DX: C25.9 Malignant neoplasm of pancreas, unspecified (principal); C78.7 Secondary malignant neoplasm of liver and intrahepatic bile duct; Z45.2 Encounter for adjustment and management of vascular access device
CPT/HCPCS: 36591; 80053; 85025

== ENCOUNTER 2021-01-04 05:12 | Outpatient (RCR) | payer OTHER, SELFPAY ==
[2020-12-14] MEDS: Normal Saline Flush 10 ML SYR IVP (11:12)
[2020-12-14 11:16] LABS: HCT 37.7 % (36.0-46.0); MCH 27.3 pg (27.0-33.0); MCHC 31.8 % (32.0-36.0); MCV 85.7 fL (80-95); MPV 10.3 fL (8.0-11.0); Nucleated RBC 0 %; Platelet Count 425 10^3/uL (130-400); RDW 16.6 % (11.7-14.6); RDW-SD 50.6 fL; WBC 7.23 10^3/uL (4.4-10.8)
[2020-12-14 11:40] LABS: ALT 81 U/L (14-59); AST 44 U/L (15-37); Albumin 3.2 g/dL (3.4-5.0); Alkaline Phosphatase 276 U/L (46-116); Anion Gap 9.4 mmol/L (3-11); BUN 13 mg/dL (7-18); Bilirubin, Total 0.3 mg/dL (0.2-1.0); CO2 25.6 mmol/L (21.0-32.0); CREATININE 0.6 mg/dL (0.55-1.02); Chloride 103 mmol/L (98-107); Glucose 122 mg/dL (74-106); Potassium 3.9 mmol/L (3.5-5.1); Sodium 138 mmol/L (136-145); Total Protein 6.9 g/dL (6.4-8.2)
[2020-12-14 12:13] LABS: Absolute Eosinophil Count 0.36 10^3/uL (0.0-0.7); Absolute Lymphocyte Count 1.37 10^3/uL (1.2-3.4); Absolute Monocyte Count 0.14 10^3/uL (0.1-0.8); Absolute Neutrophil Count 5.13 10^3/uL (1.2-6.7); Atypical Lymphocytes % 2; Bands % 2; Diff Comment Manual Differential; Metamyelocytes % 3; RBC Morphology Normal
[2020-12-21] MEDS: Normal Saline Flush 10 ML SYR IVP (10:41)
[2020-12-21 10:52] LABS: HCT 37.1 % (36.0-46.0); HGB 11.9 g/dL (11.2-15.7); MCH 27.4 pg (27.0-33.0); MCHC 32.1 % (32.0-36.0); MCV 85.3 fL (80-95); MPV 9.8 fL (8.0-11.0); Nucleated RBC 0 %; Platelet Count 457 10^3/uL (130-400); RBC 4.35 10^6/uL (3.93-5.22); RDW 17.9 % (11.7-14.6); RDW-SD 55.1 fL; WBC 18.65 10^3/uL (4.4-10.8)
[2020-12-21 11:08] LABS: ALT 55 U/L (14-59); AST 29 U/L (15-37); Albumin 3.4 g/dL (3.4-5.0); Alkaline Phosphatase 190 U/L (46-116); Anion Gap 6.5 mmol/L (3-11); BUN 21 mg/dL (7-18); Bilirubin, Total 0.2 mg/dL (0.2-1.0); CO2 29.5 mmol/L (21.0-32.0); CREATININE 0.6 mg/dL (0.55-1.02); Calcium 9.1 mg/dL (8.5-10.1); Chloride 100 mmol/L (98-107); Glucose 119 mg/dL (74-106); Sodium 136 mmol/L (136-145)
[2020-12-21 11:38] LABS: Absolute Lymphocyte Count 2.98 10^3/uL (1.2-3.4); Absolute Monocyte Count 0.56 10^3/uL (0.1-0.8); Absolute Neutrophil Count 13.99 10^3/uL (1.2-6.7); Bands % 2
[2020-12-21 11:39] LABS: Metamyelocytes % 2; Myelocytes % 4
[2020-12-21 11:41] LABS: Diff Comment Manual Differential
[2020-12-21 11:42] LABS: Anisocytosis 1+; Basophilic Stippling 1+; Hypochromasia 1+; Polychromasia Present
[2020-12-24 14:49] LABS: CA 19-9 13357 U/mL (<35)
[2021-01-04] MEDS: Normal Saline Flush 10 ML SYR IVP (08:07)
[2021-01-04 08:19] LABS: HCT 37.7 % (36.0-46.0); HGB 12.1 g/dL (11.2-15.7); MCH 28.2 pg (27.0-33.0); MCHC 32.1 % (32.0-36.0); MCV 87.9 fL (80-95); MPV 10.3 fL (8.0-11.0); Nucleated RBC 0 %; Platelet Count 178 10^3/uL (130-400); RBC 4.29 10^6/uL (3.93-5.22); RDW 19.9 % (11.7-14.6); WBC 14.74 10^3/uL (4.4-10.8)
[2021-01-04 08:32] LABS: Absolute Lymphocyte Count 1.92 10^3/uL (1.2-3.4); Absolute Monocyte Count 0.88 10^3/uL (0.1-0.8); Absolute Neutrophil Count 11.79 10^3/uL (1.2-6.7); Bands % 1; Diff Comment Manual Differential; Metamyelocytes % 1; RBC Morphology Normal
[2021-01-04 08:36] LABS: ALT 80 U/L (14-59); AST 30 U/L (15-37); Albumin 3.5 g/dL (3.4-5.0); Alkaline Phosphatase 168 U/L (46-116); Anion Gap 6.2 mmol/L (3-11); BUN 18 mg/dL (7-18); Bilirubin, Total 0.3 mg/dL (0.2-1.0); CO2 29.8 mmol/L (21.0-32.0); CREATININE 0.7 mg/dL (0.55-1.02); Calcium 9.2 mg/dL (8.5-10.1); Chloride 100 mmol/L (98-107); Glucose 143 mg/dL (74-106); Potassium 4.1 mmol/L (3.5-5.1); Sodium 136 mmol/L (136-145)
[2021-01-07 13:47] LABS: CA 19-9 11203 U/mL (<35)
== END 2021-01-10 23:59 | disposition home or self-care (01) ==
LOC: INF 05:12
PROVIDERS: PCP Family Medicine; Visit Provider Internal Medicine Hematology & Oncology
DX: C25.9 Malignant neoplasm of pancreas, unspecified (principal); C78.7 Secondary malignant neoplasm of liver and intrahepatic bile duct; Z45.2 Encounter for adjustment and management of vascular access device
CPT/HCPCS: 36591; 80053; 85025; 86301

== ENCOUNTER 2021-01-10 11:44 | Outpatient (REF) | payer MEDICARE, SELFPAY ==
[2021-01-10 16:32] LABS: TSH (W/Ref FT4) 4.61 uIU/mL (0.36-3.74)
[2021-01-10 16:50] LABS: FREE T4 0.85 ng/dL (0.76-1.46)
== END 2021-01-10 11:45 | disposition home or self-care (01) ==
LOC: NCHCN 11:44
PROVIDERS: PCP Family Medicine; Visit Provider Family Medicine
DX: E03.9 Hypothyroidism, unspecified (principal)
CPT/HCPCS: 84439; 84443

== ENCOUNTER 2021-02-01 01:30 | Outpatient (RCR) | payer MEDICARE, SELFPAY ==
[2021-01-18] MEDS: Normal Saline Flush 10 ML SYR IVP (10:25)
[2021-01-18 10:34] LABS: Abs Immature Grans 0.84 10^3/uL (0.0-0.06); HCT 40.1 % (36.0-46.0); HGB 12.7 g/dL (11.2-15.7); MCH 27.9 pg (27.0-33.0); MCHC 31.7 % (32.0-36.0); MCV 88.1 fL (80-95); MPV 10.9 fL (8.0-11.0); Nucleated RBC 0 %; Platelet Count 183 10^3/uL (130-400); RBC 4.55 10^6/uL (3.93-5.22); RDW 19.8 % (11.7-14.6); RDW-SD 63.1 fL; WBC 13.66 10^3/uL (4.4-10.8)
[2021-01-18 10:49] LABS: ALT 81 U/L (14-59); AST 33 U/L (15-37); Albumin 3.4 g/dL (3.4-5.0); Alkaline Phosphatase 190 U/L (46-116); Anion Gap 6.9 mmol/L (3-11); BUN 21 mg/dL (7-18); Bilirubin, Total 0.3 mg/dL (0.2-1.0); CO2 28.1 mmol/L (21.0-32.0); CREATININE 0.6 mg/dL (0.55-1.02); Calcium 9.5 mg/dL (8.5-10.1); Chloride 98 mmol/L (98-107); Glucose 126 mg/dL (74-106); Potassium 4.3 mmol/L (3.5-5.1); Sodium 133 mmol/L (136-145); Total Protein 7.3 g/dL (6.4-8.2)
[2021-01-18 11:08] LABS: Absolute Eosinophil Count 0.14 10^3/uL (0.0-0.7); Absolute Lymphocyte Count 3.28 10^3/uL (1.2-3.4); Absolute Monocyte Count 0.68 10^3/uL (0.1-0.8); Absolute Neutrophil Count 9.02 10^3/uL (1.2-6.7); Atypical Lymphocytes % 12; Bands % 2
[2021-01-18 11:09] LABS: Diff Comment Manual Differential; Metamyelocytes % 2; Myelocytes % 2; Polychromasia Present
[2021-01-22 07:43] LABS: CA 19-9 9912 U/mL (<35)
[2021-02-01] MEDS: Normal Saline Flush 10 ML SYR IVP (09:32)
[2021-02-01 09:35] LABS: Abs Immature Grans 0.93 10^3/uL (0.0-0.06); HCT 40.6 % (36.0-46.0); MCH 28.5 pg (27.0-33.0); MPV 9.7 fL (8.0-11.0); Nucleated RBC 0 %; Platelet Count 178 10^3/uL (130-400); RBC 4.56 10^6/uL (3.93-5.22); RDW 19.5 % (11.7-14.6); RDW-SD 62.4 fL; WBC 14.03 10^3/uL (4.4-10.8)
[2021-02-01 09:48] LABS: ALT 70 U/L (14-59); AST 31 U/L (15-37); Albumin 3.6 g/dL (3.4-5.0); Alkaline Phosphatase 267 U/L (46-116); Anion Gap 7.3 mmol/L (3-11); BUN 17 mg/dL (7-18); Bilirubin, Total 0.3 mg/dL (0.2-1.0); CO2 27.7 mmol/L (21.0-32.0); CREATININE 0.6 mg/dL (0.55-1.02); Calcium 9.2 mg/dL (8.5-10.1); Chloride 100 mmol/L (98-107); Glucose 100 mg/dL (74-106); Potassium 4.3 mmol/L (3.5-5.1); Sodium 135 mmol/L (136-145); Total Protein 7.3 g/dL (6.4-8.2)
[2021-02-01 09:52] LABS: Bands % 1
[2021-02-01 09:53] LABS: Absolute Eosinophil Count 0.28 10^3/uL (0.0-0.7); Absolute Monocyte Count 0.98 10^3/uL (0.1-0.8); Anisocytosis 1+; Diff Comment Manual Differential; Metamyelocytes % 1; Myelocytes % 3
[2021-02-04 15:40] LABS: CA 19-9 9564 U/mL (<35)
== END 2021-02-10 23:59 | disposition home or self-care (01) ==
LOC: INF 01:30
PROVIDERS: PCP Family Medicine; Visit Provider Internal Medicine Hematology & Oncology
DX: C25.9 Malignant neoplasm of pancreas, unspecified (principal); C78.7 Secondary malignant neoplasm of liver and intrahepatic bile duct; Z45.2 Encounter for adjustment and management of vascular access device
CPT/HCPCS: 36591; 80053; 85025; 86301

== ENCOUNTER 2021-02-12 10:40 | Emergency (ER) | payer MEDICARE, SELFPAY ==
[2021-02-12] VITALS (53 sets, daily range): BP systolic 119–143; BP diastolic 53–93; PULSE 76–107; RESP 13–31; TEMP 36.6–37.2; O2SAT 87–100
--- NOTE | 2021-02-12 10:44 | W.ED.GENAD ---
Discharge Plan Disposition Patient Disposition: [facility] Condition: Stable Discharge Details Clinical Impression: Gastric outlet obstruction, Vomiting Primary Care Provider: Gay Graham ED Provider: Yeimy Huerta Home Meds and New Rx's Prescriptions: No Action sennosides 8.6 mg tablet 8.6 mg PO BID RF: 0 [id number] 24,000-76,000 -120,000 unit capsule,delayed release(DR/EC) 2 cap PO TID RF: 0 dexamethasone 2 mg tablet 2 mg PO BID RF: 0 oxycodone 5 mg capsule 5 mg PO BID PRNRF: 0 melatonin 10 mg capsule 10 mg PO HS PRN (Reason: sleep) Qty: 30 RF: 0 cholecalciferol (vitamin D3) [Vitamin D3] 25 mcg (1,000 unit) tablet 2,000 unit PO DAILY RF: 0 omeprazole 20 mg capsule,delayed release(DR/EC) 20 mg PO DAILY Qty: 90 RF: 0 gemcitabine 1 gram recon soln 1,000 mg IV QWEEK Qty: 1 RF: 0 Abraxane 100 mg suspension for reconstitution 100 mg IV ONCE Qty: 1 RF: 0 levothyroxine [Synthroid] 88 mcg tablet 88 mcg PO DAILY Qty: 90 RF: 0 oxycodone 10 mg tablet,oral only,ext.rel.12 hr 10 mg PO BID MDD 20 mg Qty: 60 RF: 0 albuterol sulfate [ProAir HFA] 90 mcg/actuation HFA aerosol inhaler 2 puff IH QID PRN (Reason: shortness of breath or wheezing) Qty: 18 RF: 0 atorvastatin 40 mg tablet 40 mg PO DAILY RF: 0 tramadol 50 mg Tablet 50 mg PO Q6H PRN PRNQty: 15 RF: 0 ondansetron HCl [Zofran] 4 mg tablet 4 mg PO Q6H PRNQty: 7 RF: 0 prochlorperazine maleate 5 mg tablet See Rx Instructions .ROUTE .COMPLEX RF: 0 prochlorperazine maleate 10 mg tablet See Rx Instructions .ROUTE .COMPLEX RF: 0 Discharge Data Discharge Date/Time-TO BE ENTERED AT DEPARTURE: 02/12/21 19:13 Medical Decision Making 1100 -- 70-year-old female with a history of pancreatic cancer with metastasis to liver and lung, COPD, tobacco and alcohol abuse, GERD, hyperlipidemia and hypothyroidism presents for vomiting for the past week. Patient appears generally fatigued but nontoxic. Heart rate elevated to the low 100s but remainder vitals within normal limits. Her abdomen is soft and minimally tender in the left lower quadrant. Differential diagnosis includes gastroenteritis, chemo adverse reaction, UTI, pneumonia, electrolyte abnormality, dehydration, etc. Will place an IV, bolus IV fluids, screening labs, urinalysis and CT chest abdomen pelvis. A dose of morphine, Protonix and Phenergan IV ordered. Patient declined morphine. We will hold on IV Tylenol due to her liver. 1145 -- Labs and imaging reviewed. White blood cell count 24. Hemoglobin 14. Bands 1. Potassium 3.1, will replete. Troponin negative. Lipase normal. Urinalysis notes bili but no evidence of infection. 1245 -- CT abdomen pelvis notes IMPRESSION: Massive gastric distention and gastric wall emphysema in patient who is status post biliary stent for pancreatic carcinoma. Probable hepatic metastases as described above. No evidence of pulmonary embolic disease. Discussed with our general surgeon and agrees with plan for transfer as patient will need higher level of care. Discussed with [facility] transfer center and beds are tight. Patient reassessed and she would like surgical intervention if indicated. 1400 -- Discussed with [facility] GI who agrees with plan for transfer -- no recommendation for ng tube. Agrees with plan for IV antibiotics now discussed with [facility] medicine team who accepts patient for transfer. Accepting physician Dr. Jimenez. 1645 --[facility] GI on-call called the ED to request that an NG tube be placed. Patient has had no vomiting and has been hemodynamically stable and in no acute distress. She has declined IV pain medication. 1830 --bed now available at [facility] for transfer. Medical Records Medical records reviewed: Yes I reviewed the patient's medical records. Imaging Data Radiologic Study: Radiologist's impression: CT CHEST PE ABD PELVIS W TECHNIQUE: CT angiography of the chest, abdomen and pelvis was performed with bolus infusion of 100 cc of Omnipaque 350. Axial CT angiography was performed with multi-slice acquisition and multi-planar and/or 3D reconstructions. COMPARISON: CT CT CHEST/ABD/PEL W from 10/08/2020 FINDINGS: There are severe changes of pulmonary emphysema. No focal pulmonary consolidation identified. No pleural effusion. No evidence of pulmonary embolic disease. No thoracic aortic dissection or aneurysm. Major branches of the thoracic aorta appear normal. No pleural effusion. No mediastinal or hilar adenopathy. Tracheobronchial tree appears intact. Note is made of coronary artery calcification. Patient has a history of pancreatic carcinoma. There is biliary stent in place with gas in the biliary tract. There are multiple subtle hypoattenuating hepatic lesions which were not present on prior examination of October 08 which are suspicious for metastatic disease. There is massive gastric distension and there is gastric wall emphysema. Proximal duodenum is also distended with wall thickening descending portion of the duodenum raising the possibility invasion from pancreatic carcinoma versus inflammatory process. There is a moderate quantity of fecal material in the colon. Small bowel contains gas and fluid and is nondistended. There is a 5 cm in diameter presumed right renal cyst. A 1 cm in diameter right renal cyst is also present. No evidence of urinary tract obstruction or calcification. Unremarkable appearance of the adrenals. Unremarkable appearance of urinary bladder. No abdominal aortic aneurysm or dissection. Major branches of the abdominal aorta appear normal. No abdominal or pelvic adenopathy. Appendix is not specifically visualized.. No significant abdominal wall hernia. No focal bowel pathology. IMPRESSION: Massive gastric distention and gastric wall emphysema in patient who is status post biliary stent for pancreatic carcinoma. Probable hepatic metastases as described above. No evidence of pulmonary embolic disease. Lab Data Lab results reviewed: Yes I reviewed the patient's lab results. Labs: Laboratory Tests Range/Units 02/12/21 02/12/21 02/12/21 10:55 11:10 11:10 WBC (4.4-10.8) 10^3/uL RBC (3.93-5.22) 10^6/uL Hgb (11.2-15.7) g/dL Hct (36.0-46.0) % MCV (80-95) fL MCH (27.0-33.0) pg MCHC (32.0-36.0) % RDW (11.7-14.6) % Plt Count (130-400) 10^3/uL MPV (8.0-11.0) fL Immature Gran % Neutrophils % Band Neutrophils % Lymphocytes % Atypical Lymphs % Monocytes % Eosinophils % Basophils % Nucleated RBC % % Absolute Neutrophils (1.2-6.7) 10^3/uL Absolute Lymphocytes (1.2-3.4) 10^3/uL Absolute Monocytes (0.1-0.8) 10^3/uL Absolute Eosinophils (0.0-0.7) 10^3/uL Absolute Basophils (0.0-0.2) 10^3/uL RBC Morphology Sodium (136-145) mmol/L 136 Potassium (3.5-5.1) mmol/L 3.1 L Chloride (98-107) mmol/L 90 L Carbon Dioxide (21.0-32.0) mmol/L 40.2 H Anion Gap (3-11) mmol/L 5.8 BUN (7-18) mg/dL 44 H Creatinine (0.55-1.02) mg/dL 0.9 Estimated GFR/1.73 m2 (mL/min/1.73m2) >= 60.00 Glucose (74-106) mg/dL 131 H Calcium (8.5-10.1) mg/dL 9.8 Magnesium (1.8-2.4) mg/dL 2.2 Total Bilirubin (0.2-1.0) mg/dL 0.6 AST (15-37) U/L 34 ALT (14-59) U/L 60 H Alkaline Phosphatase (46-116) U/L 354 H Troponin I (<0.06) ng/mL < 0.05 Total Protein (6.4-8.2) g/dL 7.5 Albumin (3.4-5.0) g/dL 3.6 Lipase (73-393) U/L 231 Urine Color (Yellow) Dark Yellow Urine Clarity (Clear) Clear Urine pH (5-8) 5.5 Ur Specific [place] (1.005-1.025) >= 1.030 H Urine Protein (Negative) mg/dL 30 H Urine Ketones (Negative) mg/dL 40 H Urine Blood (Negative) Negative Urine Nitrite (Negative) Negative Urine Bilirubin (Negative) Moderate H Urine Urobilinogen (Up TO 0.2) EU/dL 0.2 Ur Leukocyte Esterase (Negative) Negative Urine RBC (0-2) HPF Negative Urine WBC (0-5) HPF Negative Ur Epithelial Cells (Negative) HPF Few Urine Crystals (Negative) HPF Few Amorphous Urine Bacteria (Negative) HPF Rare Urine Casts (Negative) LPF 5-10 Hyaline Urine Mucus (Negative) Moderate Ur Culture Indicated? No Urine Glucose (Negative) mg/dL Negative Range/Units 02/12/21 11:10 WBC (4.4-10.8) 10^3/uL 24.30 H RBC (3.93-5.22) 10^6/uL 5.24 H Hgb (11.2-15.7) g/dL 14.9 Hct (36.0-46.0) % 45.3 MCV (80-95) fL 86.5 MCH (27.0-33.0) pg 28.4 MCHC (32.0-36.0) % 32.9 RDW (11.7-14.6) % 18.0 H Plt Count (130-400) 10^3/uL 161 MPV (8.0-11.0) fL 10.3 Immature Gran % 0.0 Neutrophils % 86.0 Band Neutrophils % 1 Lymphocytes % 5.0 Atypical Lymphs % 5 Monocytes % 3.0 Eosinophils % 0.0 Basophils % 0.0 Nucleated RBC % % 0 Absolute Neutrophils (1.2-6.7) 10^3/uL 21.14 H Absolute Lymphocytes (1.2-3.4) 10^3/uL 2.43 Absolute Monocytes (0.1-0.8) 10^3/uL 0.73 Absolute Eosinophils (0.0-0.7) 10^3/uL 0.00 Absolute Basophils (0.0-0.2) 10^3/uL 0.00 RBC Morphology Normal Sodium (136-145) mmol/L Potassium (3.5-5.1) mmol/L Chloride (98-107) mmol/L Carbon Dioxide (21.0-32.0) mmol/L Anion Gap (3-11) mmol/L BUN (7-18) mg/dL Creatinine (0.55-1.02) mg/dL Estimated GFR/1.73 m2 (mL/min/1.73m2) Glucose (74-106) mg/dL Calcium (8.5-10.1) mg/dL Magnesium (1.8-2.4) mg/dL Total Bilirubin (0.2-1.0) mg/dL AST (15-37) U/L ALT (14-59) U/L Alkaline Phosphatase (46-116) U/L Troponin I (<0.06) ng/mL Total Protein (6.4-8.2) g/dL Albumin (3.4-5.0) g/dL Lipase (73-393) U/L Urine Color (Yellow) Urine Clarity (Clear) Urine pH (5-8) Ur Specific [place] (1.005-1.025) Urine Protein (Negative) mg/dL Urine Ketones (Negative) mg/dL Urine Blood (Negative) Urine Nitrite (Negative) Urine Bilirubin (Negative) Urine Urobilinogen (Up TO 0.2) EU/dL Ur Leukocyte Esterase (Negative) Urine RBC (0-2) HPF Urine WBC (0-5) HPF Ur Epithelial Cells (Negative) HPF Urine Crystals (Negative) HPF Urine Bacteria (Negative) HPF Urine Casts (Negative) LPF Urine Mucus (Negative) Ur Culture Indicated? Urine Glucose (Negative) mg/dL HPI General Mode of arrival: ambulatory. Date/Time Provider Initiated Documentation: 02/12/21 10:41. Limitations to Documentation: no limitations. Information obtained by: patient. HPI Narrative: Patient is a 70-year-old female with a history of pancreatic cancer with metastasis to liver and lung, COPD, alcohol abuse, GERD, hyperlipidemia, hypothyroidism who presents with nausea and vomiting for the past week. Patient has been receiving chemotherapy for her cancer for the past 3 months and states her last treatment was over 1 week ago. She is scheduled for her next treatment this Thursday. She has had several episodes of vomiting daily which is mainly been clear, food, and she has occasionally noted a rust color in the vomit. He states her called Dr. Tan's office and they advised her to come here for further evaluation. She states her last bowel movement was 2 days ago and within normal limits. She denies any rectal bleeding. She does admit to intermittent left-sided abdominal pain which she has had since her pancreatic cancer diagnosis. She states the pain is slightly worse than usual and is worse just prior to vomiting and somewhat relieved after vomiting. She denies any known fever. She has been taking ondansetron at night and Compazine as needed in the morning for nausea vomiting. Her last dose of Compazine was this morning but she vomited right after. Related Data Home Medications Medication Instructions Recorded Confirmed albuterol sulfate [ProAir HFA] 2 puff IH QID PRN #18 gm 06/11/19 02/12/21 atorvastatin 40 mg PO DAILY 10/08/20 02/12/21 ondansetron HCl [Zofran] 4 mg PO Q6H PRN #7 tab 10/11/20 02/12/21 tramadol 50 mg PO Q6H PRN PRN #15 tab 10/11/20 02/12/21 cholecalciferol (vitamin D3) 25 2,000 unit PO DAILY tab 01/01/21 02/12/21 mcg (1,000 unit) tablet gemcitabine 1 gram intravenous 1,000 mg IV QWEEK #1 ea 01/01/21 02/01/21 solution levothyroxine 88 mcg tablet 88 mcg PO DAILY #90 tab 01/01/21 02/12/21 melatonin 10 mg capsule 10 mg PO HS PRN #30 cap 01/01/21 02/12/21 omeprazole 20 mg capsule,delayed 20 mg PO DAILY #90 cap 01/01/21 02/12/21 release oxycodone 5 mg capsule 5 mg PO BID PRN 01/01/21 02/12/21 paclitaxel-protein bound 100 mg 100 mg IV ONCE #1 ea 01/01/21 02/01/21 intravenous suspension oxycodone 10 mg tablet,crush 10 mg PO BID #60 tab MDD 20 mg 01/31/21 02/12/21 resistant,extended release 12 hr dexamethasone 2 mg tablet 2 mg PO BID 02/01/21 02/12/21 eqsguu-[id number]-lakdmhx 2 cap PO TID cap 02/01/21 02/12/21 24,000-76,000-120,000 unit capsule,delayed rel sennosides 8.6 mg tablet 8.6 mg PO BID 02/01/21 02/12/21 prochlorperazine maleate See Rx Instructions .ROUTE .COMPLEX 02/12/21 02/12/21 prochlorperazine maleate See Rx Instructions .ROUTE .COMPLEX 02/12/21 02/12/21 Previous Rx's Medication Instructions Recorded albuterol sulfate [ProAir HFA] 2 puff IH QID PRN #18 gm 06/11/19 ondansetron HCl [Zofran] 4 mg PO Q6H PRN #7 tab 10/11/20 tramadol 50 mg PO Q6H PRN PRN #15 tab 10/11/20 gemcitabine 1 gram intravenous 1,000 mg IV QWEEK #1 ea 01/01/21 solution levothyroxine 88 mcg tablet 88 mcg PO DAILY #90 tab 01/01/21 melatonin 10 mg capsule 10 mg PO HS PRN #30 cap 01/01/21 omeprazole 20 mg capsule,delayed 20 mg PO DAILY #90 cap 01/01/21 release paclitaxel-protein bound 100 mg 100 mg IV ONCE #1 ea 01/01/21 intravenous suspension oxycodone 10 mg tablet,crush 10 mg PO BID #60 tab MDD 20 mg 01/31/21 resistant,extended release 12 hr Allergies Allergy/AdvReac Type Severity Reaction Status Date / Time codeine Allergy Mild Unverified 02/12/21 10:49 General GLORIA: 3 Review of Systems All systems reviewed & are unremarkable except as noted in HPI and below Constitutional Constitutional: Reports as per HPI, Denies chills and Denies fever(s) Eyes Eyes: Denies blurry vision ENT Ears, Nose, Mouth, and Throat: Denies dizziness, Denies sore throat and Denies throat swelling Cardiovascular Cardiovascular: Denies chest pain and Denies dyspnea Respiratory Respiratory: Denies cough and Denies dyspnea Gastrointestinal Gastrointestinal: Reports abdominal pain, Denies diarrhea and Reports vomiting Genitourinary Genitourinary: Denies hematuria and Denies dysuria Musculoskeletal Musculoskeletal: Denies back pain and Denies numbness Integumentary/Breasts Skin/Breast: Denies lesions and Denies rash Neurologic Neurologic: Denies dizziness, Denies localized weakness and Denies numbness Allergic/Immunologic Allergic/Immunologic: Denies throat swelling [facility] Medical History (Updated 02/12/21 @ 14:44 by Yeimy Huerta DO) Acute respiratory failure with hypoxia Adenocarcinoma of pancreas, stage 4 Cancer related pain COPD (chronic obstructive pulmonary disease) Fatigue Hypothyroidism (acquired) Insomnia Palliative care patient Pancreatic cancer metastasized to liver Pancreatic cancer metastasized to lung Surgical History H/O section 3 pregnancies and 3 deliveries by Family History (Updated 01/01/21 @ 14:12 by Lupe Liang MD) Son No problems noted. Daughter No problems noted. Son No problems noted. Sister No problems noted. Social History (Updated 01/01/21 @ 14:17 by Lupe Liang MD) Smoking/Tobacco Use Status: Current every day Tobacco Type: cigarettes Tobacco: How many years used: 50 Second Hand Exposure: Yes Counseling given: provider counseling and support medications Smoking risk assessment performed?: Yes Alcohol Intake: never Drug use: Never Substance use type: does not use Caregiver/Support person: Yes Household members: spouse and children Housing: house Number of Children: 3 number of grandchildren: 10 Communication Needs: Hard of Hearing and Corrective Lenses Education Level: high school Do you need help understanding health information?: Always 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[employer]; factory work in past Pets and animals: Yes Pets and animals: bird(s) and fish Do you think of yourself as: straight/heterosexual Current gender identity: female What is your relationship status?: How often do you talk on the phone with friends or family?: three or more times per week How often do you get together with friends or relatives?: three or more times per week Panel score (0-1 are the most socially isolated patients): 2 What type of physical activity do you participate in: walking and occasional exercise Duration: 15-30 minutes/day Frequency: 3-4 times per week Special ema needs: No Seatbelt use: always Working smoke detector in home: Yes Fire extinguisher in home: Yes Do you feel safe at home: Yes Do you feel safe in your relationship?: Yes Additional Social history: Linh lives with her , Ion, and her son, Juanpablo. Ion and Linh have been together for 26 years and for 15. They share their trailer with Juanpablo, who works at [employer]. [facility] has been supportive of Linh; she's getting about 75% of her usual pay on short-term disability. Linh still smokes, about 1 ppd. She's not sleeping well. When she doesn't sleep, she smokes more. She grew up in [place], [place]. She was in the [employer] for 2.5 years; she may choose to be buried in a cemetery. She and Ion have bought her casket already, making arrangements. When she can no longer receive cancer treatments, she wants to go on hospice. History History 3 Para 3 Hx # Term Pregnancies 3 Multiple births Hx # Pregnancies Ectopic pregnancies AB induced Hx Number of Living Children 3 AB spontaneous Exam Const General: cooperative and no acute distress HENMT Head: normal to inspection Face and sinus: normal facial exam Eyes General: appearance normal, both eyes and all related structures EOM: EOM intact bilaterally Neck Neck: normal visual inspection and No submandibular swelling Lymphatic: no lymphadenopathy noted Chest Chest: normal inspection of the chest and no tenderness Resp Effort & Inspection: normal respiratory effort and able to speak in complete sentences Auscultation: clear to auscultation bilaterally Cardio Rate: regular rate Rhythm: regular rhythm GI Inspection: normal to inspection Palpation: soft, not firm, not rigid and tender in the LLQ Auscultation: hypoactive bowel sounds Skin General skin exam: no rashes or lesions noted Neuro General: patient alert, patient awake and patient oriented x3 Cognition: normal cognition Speech: speech normal Motor: muscle tone normal throughout Sensory Exam: no sensory deficits noted Extrem General: normal to inspection, full ROM, capillary refill normal, no calf tenderness bilaterally and no edema Psych Appearance: grossly normal Mental Status: mental status grossly normal Speech and Movement: speech and movement normal Affect: normal affect Critical Care Time Critical Care Time Critical Care Time: Yes Total Critical Care Time: 30 Attestation: I spent 30 minutes of critical care time with this patient. This does not include time spent on separately reported billable procedures.
--- NOTE | 2021-02-12 11:15 | DI.CT_ITS ---
Exam(s) CT CHEST PE ABD PELVIS W EXAM: CT CHEST PE ABD PELVIS W TECHNIQUE: CT angiography of the chest, abdomen and pelvis was performed with bolus infusion of 100 cc of Omnipaque 350. Axial CT angiography was performed with multi-slice acquisition and multi-planar and/or 3D reconstruc tions. COMPARISON: CT CT CHEST/ABD/PEL W from 10/08/2020 FINDINGS: There are severe changes of pulmonary emphysema. No focal pulmonary consolidation identified. No pl eural effusion. No evidence of pulmonary embolic disease. No thoracic aortic dissection or aneurysm. Major branches of the thoracic aorta appear normal. No pleural effusion. No mediastinal or hilar sabra nopathy. Tracheobronchial tree appears intact. Note is made of coronary artery calcification. Patient has a history of pancreatic carcinoma. There is biliary stent in place with gas in the bilia ry tract. There are multiple subtle hypoattenuating hepatic lesions which were not present on prior examination of October 08 which are suspicious for metastatic disease. There is massive gastric distension and there is gastric wall emphysema. Proximal duodenum is also d istended with wall thickening descending portion of the duodenum raising the possibility invasion fro m pancreatic carcinoma versus inflammatory process. There is a moderate quantity of fecal material i n the colon. Small bowel contains gas and fluid and is nondistended. There is a 5 cm in diameter presumed right renal cyst. A 1 cm in diameter right renal cyst is also p resent. No evidence of urinary tract obstruction or calcification. Unremarkable appearance of the a drenals. Unremarkable appearance of urinary bladder. No abdominal aortic aneurysm or dissection. Major branches of the abdominal aorta appear normal. No a bdominal or pelvic adenopathy. Appendix is not specifically visualized.. No significant abdominal w all hernia. No focal bowel pathology. IMPRESSION: Massive gastric distention and gastric wall emphysema in patient who is status post biliary stent for pancreatic carcinoma. Probable hepatic metastases as described above. No evidence of pulmonary embolic disease. RADIATION DOSE DELIVERED: 937.41mGy.cm Total DLP 937.41mGy.cm Total DLP 12.67mGy CTDIvol DATA REPOSITORY: All CT scans at this facility are submitted to the National Radiology Data Registry (NRDR) Dose Index Registry (DIR) with the [employer] (ACR). RADIATION OPTIMIZATION: All CT scans at this facility use at least one of these dose optimization te chniques: automated exposure control; mA and/or kV adjustment per patient size (includes targeted exa ms where dose is matched to clinical indication); or iterative reconstruction.
[2021-02-12 11:18] LABS: Bilirubin Moderate (Negative); Blood Negative (Negative); Clarity Clear (Clear); Glucose Negative (Negative); Ketones 40 mg/dL (Negative); Leukocyte Esterase Negative (Negative); Nitrite Negative (Negative); Specific Gravity >= 1.030 (1.005-1.025); Urobilinogen 0.2 EU/dL (Up TO 0.2); pH 5.5 (5-8)
[2021-02-12 11:20] LABS: HCT 45.3 % (36.0-46.0); HGB 14.9 g/dL (11.2-15.7); MCH 28.4 pg (27.0-33.0); MCHC 32.9 % (32.0-36.0); MCV 86.5 fL (80-95); MPV 10.3 fL (8.0-11.0); Nucleated RBC 0 %; Platelet Count 161 10^3/uL (130-400); RBC 5.24 10^6/uL (3.93-5.22); RDW-SD 55.6 fL
[2021-02-12 11:29] LABS: Bacteria Rare HPF (Negative); C & S Indicated? No; Casts 5-10 Hyaline LPF (Negative); Crystals Few Amorphous HPF (Negative); Epithelial Cells Few HPF (Negative); Mucus Moderate (Negative); RBC Negative HPF (0-2); WBC Negative HPF (0-5)
[2021-02-12 11:30] LABS: Lipase 231 U/L (73-393); Magnesium 2.2 mg/dL (1.8-2.4)
[2021-02-12 11:37] LABS: ALT 60 U/L (14-59); AST 34 U/L (15-37); Albumin 3.6 g/dL (3.4-5.0); Alkaline Phosphatase 354 U/L (46-116); Anion Gap 5.8 mmol/L (3-11); BUN 44 mg/dL (7-18); Bilirubin, Total 0.6 mg/dL (0.2-1.0); CO2 40.2 mmol/L (21.0-32.0); CREATININE 0.9 mg/dL (0.55-1.02); Calcium 9.8 mg/dL (8.5-10.1); Chloride 90 mmol/L (98-107); Glucose 131 mg/dL (74-106); Potassium 3.1 mmol/L (3.5-5.1); Sodium 136 mmol/L (136-145); Total Protein 7.5 g/dL (6.4-8.2)
[2021-02-12] MEDS: Normal Saline 1,000 ML 1000 ML IV (11:37)
[2021-02-12] MEDS: Normal Saline-STERILE FIELD 0.9% 10 ML SYR (11:38)
[2021-02-12 11:39] LABS: Troponin I < 0.05 ng/mL (<0.06)
[2021-02-12 11:41] LABS: Absolute Lymphocyte Count 2.43 10^3/uL (1.2-3.4); Absolute Monocyte Count 0.73 10^3/uL (0.1-0.8); Absolute Neutrophil Count 21.14 10^3/uL (1.2-6.7); Atypical Lymphocytes % 5; Bands % 1; Diff Comment Manual Differential; RBC Morphology Normal
[2021-02-12] MEDS: Pantoprazole 40 MG VIAL IVP (11:59)
[2021-02-12] MEDS: Omnipaque 350 MG/ML 100 ML BTL IJ (12:32)
[2021-02-12] MEDS: POTASSIUM CHLORIDE 20 MEQ/100 ML BAG 50 MEQ IVPB (13:10)
[2021-02-12] MEDS: PIPERACILLIN/TAZO 3.375 GM in Normal Saline 50 ML IVPB (14:14)
== END 2021-02-12 19:13 | disposition short-term general hospital (02) ==
PROVIDERS: Emergency Provider Physician Assistant; PCP Family Medicine
DX: K31.1 Adult hypertrophic pyloric stenosis (principal); R11.10 Vomiting, unspecified; C25.9 Malignant neoplasm of pancreas, unspecified; C78.7 Secondary malignant neoplasm of liver and intrahepatic bile duct; C78.00 Secondary malignant neoplasm of unspecified lung; F17.210 Nicotine dependence, cigarettes, uncomplicated
CPT/HCPCS: 36415; 71275; 74177; 80053; 83690; 96361; 96365; 96366; 96367; 96368; 99291; 81003; 81015; 83735; 84484; 85025; J2543; J3480; J3490

== ENCOUNTER 2021-03-01 02:23 | Outpatient (RCR) | payer MEDICARE, SELFPAY ==
[2021-02-22 09:12] LABS: Abs Immature Grans 4.98 10^3/uL (0.0-0.06); HCT 40.4 % (36.0-46.0); MCH 28.6 pg (27.0-33.0); MCHC 32.2 % (32.0-36.0); MCV 88.8 fL (80-95); MPV 10.2 fL (8.0-11.0); Nucleated RBC 0 %; RBC 4.55 10^6/uL (3.93-5.22); RDW 18.7 % (11.7-14.6); RDW-SD 59.7 fL
[2021-02-22 09:23] LABS: Platelet Count 264 10^3/uL (130-400)
[2021-02-22 09:29] LABS: WBC 30.75 10^3/uL (4.4-10.8)
[2021-02-22 09:30] LABS: Absolute Lymphocyte Count 3.38 10^3/uL (1.2-3.4); Absolute Monocyte Count 3.08 10^3/uL (0.1-0.8); Absolute Neutrophil Count 21.83 10^3/uL (1.2-6.7); Bands % 5
[2021-02-22 09:31] LABS: Diff Comment Manual Differential; Metamyelocytes % 3; Myelocytes % 5; Polychromasia Present
[2021-02-22 09:40] LABS: Calcium 8.9 mg/dL (8.5-10.1); Glucose 189 mg/dL (74-106)
[2021-02-22 09:41] LABS: ALT 127 U/L (14-59); AST 66 U/L (15-37); Albumin 3.2 g/dL (3.4-5.0); Alkaline Phosphatase 315 U/L (46-116); Anion Gap 7.1 mmol/L (3-11); BUN 23 mg/dL (7-18); Bilirubin, Total 0.3 mg/dL (0.2-1.0); CO2 27.9 mmol/L (21.0-32.0); CREATININE 0.6 mg/dL (0.55-1.02); Chloride 98 mmol/L (98-107); Potassium 3.9 mmol/L (3.5-5.1); Sodium 133 mmol/L (136-145)
[2021-02-22] MEDS: Normal Saline Flush 10 ML SYR IVP (09:47)
[2021-02-22] MEDS: Heparin 500 UNITS/5 ML SYRINGE IV (09:47)
[2021-02-25 14:01] LABS: CA 19-9 22742 U/mL (<35)
[2021-03-01] MEDS: Normal Saline Flush 10 ML SYR IVP (09:15)
[2021-03-01 09:23] LABS: Abs Immature Grans 1.56 10^3/uL (0.0-0.06); Absolute Basophil Count 0.15 10^3/uL (0.0-0.2); Absolute Eosinophil Count 0.11 10^3/uL (0.0-0.7); Absolute Monocyte Count 1.14 10^3/uL (0.1-0.8); Absolute Neutrophil Count 17.13 10^3/uL (1.2-6.7); Basophils % 0.7; Eosinophils % 0.5; HCT 37.7 % (36.0-46.0); HGB 12.1 g/dL (11.2-15.7); Immature Grans % 7.1; Lymphocytes % 8.6; MCH 28.6 pg (27.0-33.0); MCHC 32.1 % (32.0-36.0); MCV 89.1 fL (80-95); MPV 10.6 fL (8.0-11.0); Monocytes % 5.2; Neutrophils % 77.9; Nucleated RBC 0 %; Platelet Count 146 10^3/uL (130-400); RBC 4.23 10^6/uL (3.93-5.22); RDW 18.9 % (11.7-14.6); RDW-SD 61.1 fL; WBC 21.99 10^3/uL (4.4-10.8)
[2021-03-01 09:26] LABS: Absolute Lymphocyte Count 1.89 10^3/uL (1.2-3.4)
[2021-03-01 09:39] LABS: ALT 160 U/L (14-59); AST 73 U/L (15-37); Alkaline Phosphatase 406 U/L (46-116); Anion Gap 7.7 mmol/L (3-11); BUN 17 mg/dL (7-18); Bilirubin, Total 0.4 mg/dL (0.2-1.0); CO2 30.3 mmol/L (21.0-32.0); CREATININE 0.5 mg/dL (0.55-1.02); Calcium 9.2 mg/dL (8.5-10.1); Chloride 97 mmol/L (98-107); Glucose 150 mg/dL (74-106); Potassium 4.2 mmol/L (3.5-5.1); Sodium 135 mmol/L (136-145); Total Protein 6.9 g/dL (6.4-8.2)
[2021-03-01 09:51] LABS: Diff Comment Diff Reviewed
[2021-03-01 09:52] LABS: Anisocytosis 1+
[2021-03-04 16:06] LABS: CA 19-9 38245 U/mL (<35)
== END 2021-03-12 23:59 | disposition home or self-care (01) ==
LOC: INF 02:23
PROVIDERS: PCP Family Medicine; Visit Provider Internal Medicine Hematology & Oncology
DX: C25.9 Malignant neoplasm of pancreas, unspecified (principal); Z45.2 Encounter for adjustment and management of vascular access device; C78.7 Secondary malignant neoplasm of liver and intrahepatic bile duct
CPT/HCPCS: 36591; 80053; 85025; 86301

== ENCOUNTER 2021-03-29 01:34 | Outpatient (CLI) | payer MEDICARE, SELFPAY ==
--- NOTE | 2021-03-29 10:00 | DI.MRI_ITS ---
Exam(s) MR ABDOMEN WO/W EXAM: MR ABDOMEN WO/W CLINICAL HISTORY: STAGE IV PANCREATIC CA, CHRONIC NAUSEA, ABNL FINDINGS, R93.5 TECHNIQUE: Multiplanar multisequence MRA of the Abdomen was performed. CONTRAST MATERIAL: IV Contrast: 10 mL of Dotarem contrast administered. COMPARISON: CT CT CHEST PE ABD PELVIS W from 02/12/[address] CHEST PE ABD PELVIS W from 02/12/2021 FINDINGS: The examination is limited due to patient motion artifact. Liver: There multiple hepatic masses consistent with metastatic disease. They measure up to 1.5-2 cm in size. Pancreas: There is a biliary stent in place. There is a 4.1 x 3.5 cm hypoechoic intense mass involvi ng the head of the pancreas likely reflecting carcinoma. There is atrophy of the body and tail of th e pancreas. There are indistinct margins between the pancreas and the adjacent stomach and duodenum. There has been interval decrease in size of the stomach compared to the CT scan from 02/12/2021. The re are 2 simple fluid collections interposed between the tail of the pancreas and the stomach. The l arger measures 5.8 x 4.4 cm. The smaller measures 1.3 x 1.2 cm. Gallbladder and Bile Ducts: There is no biliary ductal dilatation. Adrenals: Unremarkable. Kidneys: There is a 4.7 cm simple right renal cyst. There is a 5 mm simple left renal cyst on the mi dpole. Spleen: Unremarkable. Aorta: The abdominal aorta measures 2.9 cm transverse by 2.6 cm AP. Soft Tissues: Unremarkable. Bone: There is no evidence of osseous metastatic disease. Lymph Nodes: Unremarkable. Peritoneal cavity: There is a trace amount of free fluid along the left pericolic gutter. IMPRESSION: 1. Hypointense mass in the head of the pancreas suggestive of pancreatic carcinoma. Indistinct lissa ns between the pancreas in the adjacent stomach and duodenum. Infiltration cannot be excluded. 2. Multiple hepatic masses consistent with metastatic disease. 3. Nonspecific of simple fluid collections interposed between the tail of the pancreas and the stomac h. The larger measures 5.8 x 4.4 cm. DATA REPOSITORY:
[2021-03-29] MEDS: Gadoterate meglumine 20 ML VIAL 10 ML IVP (11:29)
== END 2021-03-29 01:54 ==
PROVIDERS: PCP Family Medicine; Visit Provider Nurse Practitioner Family
DX: R93.5 Abnormal findings on diagnostic imaging of other abdominal regions, including retroperitoneum (principal); C25.9 Malignant neoplasm of pancreas, unspecified; C78.7 Secondary malignant neoplasm of liver and intrahepatic bile duct; R11.0 Nausea
CPT/HCPCS: 74183

== ENCOUNTER 2021-03-29 02:28 | Outpatient (RCR) | payer MEDICARE, SELFPAY ==
[2021-03-15] MEDS: Normal Saline Flush 10 ML SYR IVP (08:45)
[2021-03-15 08:49] LABS: Abs Immature Grans 1.66 10^3/uL (0.0-0.06); HGB 12.6 g/dL (11.2-15.7); MCH 28.3 pg (27.0-33.0); MCHC 31.5 % (32.0-36.0); MCV 89.7 fL (80-95); MPV 10.2 fL (8.0-11.0); Nucleated RBC 0 %; RBC 4.46 10^6/uL (3.93-5.22); RDW 17.5 % (11.7-14.6); RDW-SD 57.1 fL
[2021-03-15 09:04] LABS: ALT 99 U/L (14-59); AST 41 U/L (15-37); Absolute Basophil Count 0.25 10^3/uL (0.0-0.2); Absolute Eosinophil Count 0.25 10^3/uL (0.0-0.7); Absolute Lymphocyte Count 2.39 10^3/uL (1.2-3.4); Absolute Monocyte Count 0.88 10^3/uL (0.1-0.8); Absolute Neutrophil Count 7.56 10^3/uL (1.2-6.7); Alkaline Phosphatase 567 U/L (46-116); Anion Gap 6.4 mmol/L (3-11); BUN 19 mg/dL (7-18); Bands % 7; Bilirubin, Total 0.4 mg/dL (0.2-1.0); CO2 28.6 mmol/L (21.0-32.0); CREATININE 0.6 mg/dL (0.55-1.02); Calcium 9.2 mg/dL (8.5-10.1); Chloride 97 mmol/L (98-107); Glucose 150 mg/dL (74-106); Platelet Count 193 10^3/uL (130-400); Potassium 4.3 mmol/L (3.5-5.1); Sodium 132 mmol/L (136-145); Total Protein 6.8 g/dL (6.4-8.2)
[2021-03-15 09:05] LABS: Diff Comment Manual Differential; Metamyelocytes % 4; Myelocytes % 6; RBC Morphology Normal
[2021-03-29] MEDS: Normal Saline Flush 10 ML SYR IVP (09:56)
[2021-03-29 10:01] LABS: HCT 40.5 % (36.0-46.0); HGB 12.8 g/dL (11.2-15.7); MCH 28.3 pg (27.0-33.0); MCHC 31.6 % (32.0-36.0); MCV 89.4 fL (80-95); MPV 10.3 fL (8.0-11.0); Nucleated RBC 0 %; Platelet Count 189 10^3/uL (130-400); RBC 4.53 10^6/uL (3.93-5.22); RDW 17.3 % (11.7-14.6); RDW-SD 56.1 fL; WBC 22.88 10^3/uL (4.4-10.8)
[2021-03-29 10:14] LABS: ALT 70 U/L (14-59); AST 39 U/L (15-37); Albumin 2.9 g/dL (3.4-5.0); Alkaline Phosphatase 598 U/L (46-116); Anion Gap 6.9 mmol/L (3-11); BUN 17 mg/dL (7-18); Bilirubin, Total 0.6 mg/dL (0.2-1.0); CO2 29.1 mmol/L (21.0-32.0); CREATININE 0.6 mg/dL (0.55-1.02); Calcium 9.4 mg/dL (8.5-10.1); Chloride 100 mmol/L (98-107); Glucose 155 mg/dL (74-106); Potassium 3.9 mmol/L (3.5-5.1); Sodium 136 mmol/L (136-145)
[2021-03-29 10:15] LABS: Absolute Lymphocyte Count 1.83 10^3/uL (1.2-3.4); Absolute Monocyte Count 1.83 10^3/uL (0.1-0.8); Absolute Neutrophil Count 19.22 10^3/uL (1.2-6.7); Atypical Lymphocytes % 3; Bands % 2; Diff Comment Manual Differential; RBC Morphology Normal
[2021-04-01 10:08] LABS: CA 19-9 16 U/mL (<35)
== END 2021-04-12 23:59 | disposition home or self-care (01) ==
LOC: INF 02:28
PROVIDERS: PCP Family Medicine; Visit Provider Internal Medicine Hematology & Oncology
DX: C25.9 Malignant neoplasm of pancreas, unspecified (principal); C78.7 Secondary malignant neoplasm of liver and intrahepatic bile duct; Z45.2 Encounter for adjustment and management of vascular access device
CPT/HCPCS: 36591; 80053; 85025; 86301